=== PATIENT | female | born 1940 | race Caucasian/White ===

== ENCOUNTER 2017-04-03 15:03 | Outpatient (CLI) | payer MEDICARE ==
--- NOTE | 2017-04-03 18:04 | RAD ---
RIGHT KNEE 4 VIEWS: Date: 04/03/17 HISTORY: Acute pain in the right knee. FINDINGS/IMPRESSION: Degenerative changes are present. A joint effusion is noted. No acute fracture, dislocation, or bony destruction is identified. POS: [facility]
--- NOTE | 2017-04-03 18:15 | ULT ---
ULTRASOUND WITH DOPPLER DUPLEX VENOUS LOWER EXTREMITY RIGHT: HISTORY: 76-year-old female with acute right patellar pain, M25.561. TECHNIQUE: Color flow Doppler, spectral waveform analysis of pulsed Doppler, and zafar-scale imaging with compre ssion and augmentation, were used to evaluate the right common femoral, femoral, popliteal, posterio r tibial, and superficial femoral, veins; and the proximal portions of the profunda femoral and grea ter saphenous, veins. There is hypoechoic band with sharp, linear margins, adjacent to the patella on the last three image s, labeled as right patella. It is difficult to determine exactly where this is in relation to the patella, on static images, without personally scanning the patient. Etiology is uncertain. Pe rhaps this is a fluid collection such as a joint effusion or hematoma. FINDINGS: There is normal compressibility, demonstration of blood flow by color Doppler and pulsed Doppler, an d response to augmentation, in all interrogated veins. IMPRESSION: 1. No deep vein thrombosis in the right lower extremity. 2. Right peripatellar hypoechoic band of material, of unknown etiology, perhaps a fluid collection. MRI of the knee may be useful (if there are no contraindications). lyn gore POS: [facility]
== END 2017-04-03 15:04 | disposition home or self-care (01) ==
LOC: SCSULT 15:03
PROVIDERS: ATTEND Nurse Practitioner Family
DX: M25.561 Pain in right knee (principal); M17.11 Unilateral primary osteoarthritis, right knee; M25.461 Effusion, right knee

== ENCOUNTER 2017-05-07 12:36 | Outpatient (CLI) | payer MEDICARE ==
--- NOTE | 2017-05-07 19:23 | MRI ---
MRI BILATERAL TEMPOROMANDIBULAR JOINT 05/07/17 HISTORY: M26.609. TMJ syndrome. Mouth piece. COMPARISON: None available. FINDINGS: There is sclerosis of the mandibular condyles bilaterally. On the closed position there is normal loc ation of the mandibular condyles within the glenoid fossa. On both the closed and open mouth position s, the articular disc is mildly thickened centrally with anterior displacement and with the open mout h position is displaced and buckled anteriorly. There is bilateral temporomandibular joint effusions. IMPRESSION: Moderate degenerative changes of both temporomandibular joints and mild flattening of the mandibular condyles with joint effusions. There is anterior displacement of the centrally thickened articular di sc in the closed mouth position with further anterior translation with open mouth position. POS: [facility]
== END 2017-05-07 12:37 | disposition home or self-care (01) ==
LOC: SCSMRI 12:36
PROVIDERS: ATTEND Family Medicine
DX: M26.609 Unspecified temporomandibular joint disorder, unspecified side (principal); M26.69 Other specified disorders of temporomandibular joint
CPT/HCPCS: 70336

== ENCOUNTER 2017-06-19 16:30 | Outpatient (CLI) | payer MEDICARE | END 2017-06-19 16:31 | disposition home or self-care (01) | LOC: SLEEPLAB 16:30 | PROVIDERS: ATTEND Family Medicine | DX: G47.33 Obstructive sleep apnea (adult) (pediatric) (principal); R53.83 Other fatigue; E66.9 Obesity, unspecified; I10 Essential (primary) hypertension; E11.9 Type 2 diabetes mellitus without complications | CPT/HCPCS: 95806 ==

== ENCOUNTER 2017-09-12 13:10 | Outpatient (CLI) | payer MEDICARE ==
--- NOTE | 2017-09-12 14:03 | ULT ---
RIGHT GROIN DUPLEX SONOGRAM: HISTORY: Right groin pain. Recent heart catheterization. FINDINGS: Sonographic evaluation of the right groin shows good color and spectral Doppler flow within the right common femoral artery and vein. There is no perivascular fluid collection. No evidence of arteriov enous fistula. IMPRESSION: No evidence of vascular complication of the right groin. POS: [facility]
== END 2017-09-12 13:11 | disposition home or self-care (01) ==
LOC: ULT 13:10
PROVIDERS: ATTEND Internal Medicine Cardiovascular Disease
DX: R10.30 Lower abdominal pain, unspecified (principal)
CPT/HCPCS: 93926

== ENCOUNTER 2017-10-15 01:39 | Emergency (ER) | payer MEDICARE ==
[2017-10-15 02:06] LABS: #Basophils 0.1 thou/uL (0.0-0.2); #Eosinphils 0.3 thou/uL (0.0-0.7); #Lymphocytes 2.5 thou/uL (1.20-3.40); #Monocytes 0.9 thou/uL (0.11-0.59); #Neutrophils 9.7 thou/uL (1.40-6.50); %Basophils 0.4 % (0.0-1.0); %Eosinophils 2.3 % (0.0-10.0); %Lymphocytes 18.4 % (21.0-51.0); %Monocytes 6.5 % (0.0-10.0); %Neutrophils 72.4 % (42.0-75.0); Hemoglobin 12.2 g/dL (12.0-16.0); Mean Corpuscular HGB CONC 35.8 g/dL (32.0-36.0); Mean Corpuscular Hemoglobin 31.7 pg (27.0-31.0); Mean Corpuscular Volume 88.6 fl (81.0-99.0); Platelet Count 235 thou/uL (130-400); RBC Distribution Width 11.6 % (11.5-14.5); Red Blood Cell (RBC) Count 3.86 mill/uL (4.20-5.40); White Blood Cell (WBC) Count 13.4 thou/uL (4.8-10.8)
[2017-10-15 02:27] LABS: ALT (SGPT) 10 U/L (8-55); AST (SGOT) 15 U/L (5-34); Albumin 4.1 g/dL (3.4-4.8); Alkaline Phosphatase 60 U/L (40-150); Anion Gap 14 mmol/L (10-20); BUN (Urea Nitrogen) 13 mg/dL (9.8-20.1); Bilirubin, Total 0.5 mg/dL (0.2-1.2); Calc. Creatinine Clearance 0 mL/min (70-130); Calcium 9.2 mg/dL (7.8-10.44); Carbon Dioxide 33 mmol/L (23-31); Chloride 90 mmol/L (98-107); Estimated GFR-MDRD 66; Globulin 2.9 g/dL (2.4-3.5); Glucose 144 mg/dL (83-110); Potassium 3.3 mmol/L (3.5-5.1); Sodium 134 mmol/L (136-145)
[2017-10-15 02:30] LABS: CKMB 0.6 ng/mL (0-6.6); Troponin I Less than 0.010 ng/mL (< 0.028)
--- NOTE | 2017-10-15 07:34 | RAD ---
SINGLE VIEW CHEST: Date: 10/15/17 COMPARISON: None. HISTORY: Chest pain. FINDINGS: Single view of the chest shows a normal sized cardiomediastinal silhouette. There is no evidence of c onsolidation, mass, or pleural effusion. The bones are unremarkable. IMPRESSION: No evidence of acute cardiopulmonary disease. POS: [facility]
== END 2017-10-15 03:15 | disposition home or self-care (01) ==
LOC: ERS 01:39
DX: J40 Bronchitis, not specified as acute or chronic (principal); E03.9 Hypothyroidism, unspecified; E11.9 Type 2 diabetes mellitus without complications; I10 Essential (primary) hypertension; Z79.899 Other long term (current) drug therapy; Z79.84 Long term (current) use of oral hypoglycemic drugs
CPT/HCPCS: 36415; 71045; 80053; 82553; 84484; 85025; 85379; 93005

== ENCOUNTER 2017-10-16 13:23 | Outpatient (CLI) | payer MEDICARE ==
[2017-10-16 13:46] LABS: Hemoglobin 12.5 g/dL (12.0-16.0); Mean Corpuscular HGB CONC 35.4 g/dL (32.0-36.0); Mean Corpuscular Hemoglobin 31.1 pg (27.0-31.0); Mean Corpuscular Volume 87.8 fl (81.0-99.0); Mean Platelet Volume 8.1 fL (7.4-10.4); Platelet Count 251 thou/uL (130-400); RBC Distribution Width 11.4 % (11.5-14.5); Red Blood Cell (RBC) Count 4.01 mill/uL (4.20-5.40); White Blood Cell (WBC) Count 10.6 thou/uL (4.8-10.8)
[2017-10-16 13:49] LABS: INR-International Normal Ratio 1.1; Prothrombin Time 14.2 SEC (12.0-14.7)
[2017-10-16 13:50] LABS: PTT 39.4 SEC (22.9-36.1)
[2017-10-16 14:04] LABS: Anion Gap 11 mmol/L (10-20); BUN (Urea Nitrogen) 14 mg/dL (9.8-20.1); Calc. Creatinine Clearance 0 mL/min (70-130); Calcium 9.3 mg/dL (7.8-10.44); Carbon Dioxide 31 mmol/L (23-31); Chloride 88 mmol/L (98-107); Estimated GFR-MDRD 84; Glucose 92 mg/dL (83-110); Potassium 3.2 mmol/L (3.5-5.1); Sodium 127 mmol/L (136-145)
== END 2017-10-16 13:24 | disposition home or self-care (01) ==
LOC: LABBT 13:23
PROVIDERS: ATTEND Internal Medicine Cardiovascular Disease
DX: Z01.818 Encounter for other preprocedural examination (principal); I25.10 Atherosclerotic heart disease of native coronary artery without angina pectoris
CPT/HCPCS: 80048; 85027; 85610; 85730

== ENCOUNTER 2017-10-21 05:52 | Inpatient (IN) | payer MEDICARE ==
[2017-10-21] MEDS ORDERED: Diazepam 5 MG TAB ONE (06:02)
[2017-10-21] MEDS ORDERED: Lidocaine 1% (PF) 30 ML VIAL ONE (06:47)
[2017-10-21] MEDS ORDERED: Midazolam HCl 2 mg/2 ml Vial ONE (06:48)
[2017-10-21] MEDS ORDERED: Fentanyl 100 MCG/2 ML VIAL ONE (06:48)
[2017-10-21] MEDS ORDERED: Nitroglycerin 100MG/250ML BOT 250 ML ONE (07:52)
[2017-10-21] MEDS ORDERED: Heparin 10,000 UNITS/1 ML VIAL ONE (08:15)
[2017-10-21] MEDS ORDERED: Atropine Sulfate 1 mg/1 ml Vial ONE (08:18)
[2017-10-21] MEDS ORDERED: DOPamine 400 MG/D5W 250 ML 250 ML ONE (08:19)
[2017-10-21] MEDS ORDERED: EPINEPHrine 1 MG/10 ML Abboject SYRINGE ONE (08:20)
[2017-10-21] MEDS ORDERED: PHENYLEPHRINE-NS 100 MCG/ML 10 ML SYRINGE ONE (08:20)
[2017-10-21] MEDS ORDERED: Phenylephrine HCL 10 MG/ML VIAL ONE (08:48)
[2017-10-21] MEDS: Sodium Chloride 0.9% 1,000 ML IV SCH ×2 (12:06→14:45)
[2017-10-21] MEDS ORDERED: Iopamidol 370 76% 50 ML VIAL FS ONE (13:23)
[2017-10-21] MEDS ORDERED: Iopamidol 370 76% 100 ML VIAL ONE (13:23)
--- NOTE | 2017-10-21 14:48 | CON ---
DATE OF CONSULTATION: 10/21/2017 HISTORY OF PRESENT ILLNESS: This is a 77-year-old female with cardiovascular risk factors of hyperte nsion, dyslipidemia, diabetes mellitus who had a transient episode of atrial fibrillation by her acco unt earlier this year. Dr. Killian suggested a stress test which was abnormal with hypotension during the stress study. Cardiac catheterization done 6 weeks ago showed proximal LAD disease as well as t he mid to distal PDA lesion and a proximal posterolateral lesion. She was initially evaluated in [place] for possible atherectomy and LAD. However, after catheterizat ion today it was decided that surgical intervention may be most appropriate. PAST SURGICAL HISTORY: Includes a left knee replacement, several pelvic procedures related to a gyne cologic problems, previous cholecystectomy, and previous thyroidectomy for papillary carcinoma about 4 years ago. She has also had a skin cancer removed from her arm. PAST MEDICAL HISTORY: Besides the above noted hypertension, dyslipidemia, diabetes mellitus includes temporomandibular joint syndrome. 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 She lives by herself, doing some cattle ranching and has some difficulty getting in and out of h er truck due to arthritis. SOCIAL HISTORY: She is a nonsmoker. She lives alone in . She is accompanied by daughter today who lives in the [place] area and she has a son who lives about 30 minutes away. MEDICATIONS: Include amlodipine 5 mg a day, aspirin 81 a day, Plavix 75 a day which has been on hold for about 3-4 days, Coreg 12.5 p.o. b.i.d., glipizide 10 mg of the long-acting daily, levothyroxine 112 mcg daily, metformin 500 mg every morning and 1000 every evening, Crestor 10 mg every evening, va lsartan 320 mg a day. ALLERGIES: PENICILLIN, TETANUS, CEPHALEXIN, CORTISONE, EGGS, PREDNISONE. PHYSICAL EXAMINATION: GENERAL: Alert, cooperative lady, somewhat pale. VITAL SIGNS: Height 5 feet 7 inches, weight 82 kg. NECK: No carotid bruits, no adenopathy. LUNGS: Clear to auscultation anteriorly. CARDIAC: Regular rate and rhythm. I do not appreciate any murmurs. ABDOMEN: Obese, firm, nontender, no organomegaly. EXTREMITIES: Incision well healed on the left knee. She has palpable right popliteal, right dorsali s pedis pulse and no pedal pulses in the left foot. She has no peripheral edema. Additional review of systems at this time includes some swelling in her legs, which she has been raf luke with various diuretics including Maxzide and Lasix. Related to that, she has had some hyponatrem ia. She also relates a diagnosis of chronic kidney disease that is well controlled at this time. Sh e denies any claudication. She has had no previous TIA or stroke. She does have jaw pain sometimes making it difficult to eat and she does have a history of nausea and vomiting after anesthetics. As discussed with Dr. Killian. Possible targets include the LAD distally possibly in its mid portion, th e posterior lateral and possibly the distal PDA. Discussed with patient and daughter and questions a nswered.
[2017-10-21] MEDS ORDERED: CHLORTRIMETON PO PRN (18:35)
[2017-10-21] MEDS: Rosuvastatin 10 MG TAB PO SCH (20:08)
[2017-10-21] MEDS: Acetaminophen ER (8hr) 650 MG TAB PO PRN (20:09)
--- NOTE | 2017-10-21 23:10 | HP ---
REASON FOR ADMISSION: Severe hypotension in the chemistry lab instructor. HISTORY OF PRESENT ILLNESS: Ms. Yoly Leal is a very pleasant 77-year-old woman. The patient has been having increasing amounts of angina. She underwent outpatient cardiac catheterization. She wa s found to have a calcified LAD lesion and also disease in the right coronary artery with a 90% lesio n at the posterolateral branch. She was sent to [facility] for consideration of rotational atherectomy. The physician there was concern ed about doing the rotational atherectomy with stenosis in the right coronary artery and after consul tation with him, we elected to stage the procedure and do the right coronary artery first. The patie nt was taken to chemistry lab instructor this morning, re-evaluated the LAD. It looked like there was a very long he avily calcified lesion in the proximal LAD and borderline in the mid LAD. No obstructive disease in the circumflex and posterolateral branch stenosis as well as the posterior descending artery stenosis distally. I consulted in the chemistry lab instructor briefly with Dr. Perez. We thus decided that the best option would be to electively send her for bypass surgery. One further angiogram was done of the right coronary artery to further localize where the stenosis wa s in the posterior descending artery. At that point, the patient developed severe ST elevation, jones re bradycardia, and hypotension. The initial angiogram looked like the posterior descending artery h ad occluded. Arrangements were made to do an emergency intervention. A 6-Kiswahili sheath was exchange d for a 4-Kiswahili. She was given heparin, but then a repeat angiogram revealed that the flow had impr phillip, but then it became clear that there had been some air embolization. There must have been some air that was in the line, which was injected. Therefore, the patient was given pressors and support and it gradually improved. The EKG changes resolved. The blood pressure improved with medication, b ut it was felt best to keep her in the Intensive Care Unit for observation. The patient is feeling better now, just tired. The left ventriculogram prior to that episode had been normal. MEDICATIONS AT HOME: 1. Aspirin. 2. She is on carvedilol. 3. She was on amlodipine. 4. Plavix had been stopped a few days ago. 5. Glipizide. 6. She is also on rosuvastatin. ALLERGIES: Negative to iodine or other cardiac medicines. REVIEW OF SYSTEMS: Constitutional: No significant weight gain or loss. VISION: No changes. Heari ng: No changes. Pulmonary: No cough or wheezing. Gastrointestinal: No nausea, vomiting, diarrhea . PHYSICAL EXAMINATION: GENERAL: Now, the patient is feeling better, just tired. She has some shoulder pain, but no angina. VITAL SIGNS: Blood pressure is 100/60, pulse 86 and regular. HEENT: Eyes, sclerae are nonicteric. Mouth, mucous membranes are moist. NECK: Supple. No lymphadenopathy. LUNGS: Clear. No wheezing, rales, or rhonchi. CARDIAC: Normal S1, normal S2. ASSESSMENT: 1. Severe coronary artery disease as outlined above. 2. Hypotensive episode in the chemistry lab instructor as outlined above, resolved. PLAN: The patient will ultimately undergo bypass surgery in view of the heavily calcified LAD lesion . Continue supportive care. Discussed with the patient and family. Discussed with the family yusuf prakash this morning as well.
[2017-10-22] MEDS: Acetaminophen ER (8hr) 650 MG TAB PO PRN ×3 (04:22→22:29)
[2017-10-22] MEDS: Sodium Chloride 0.9% 1,000 ML IV SCH (04:23)
[2017-10-22] MEDS ORDERED: Amlodipine 5 MG TAB PO SCH (09:00)
[2017-10-22] MEDS: Carvedilol 6.25 MG TAB PO SCH ×2 (09:06→16:35)
[2017-10-22] MEDS: Ascorbic Acid 500 mg Chewable Tablet PO SCH (09:07)
[2017-10-22] MEDS: Valsartan 80 MG TAB PO SCH ×2 (09:27→21:07)
[2017-10-22] MEDS ORDERED: Communication Order-Pharmacy FS SCH (16:03)
[2017-10-22] MEDS: Enoxaparin Sodium 40 MG/0.4 ML SYRINGE SC SCH (21:06)
[2017-10-22] MEDS: Rosuvastatin 10 MG TAB PO SCH (21:07)
[2017-10-22] MEDS: diphenhydrAMINE 25 MG CAP PO PRN (22:32)
[2017-10-23] MEDS: Levothyroxine Sodium 100 MCG TAB PO SCH (05:24)
[2017-10-23] MEDS ORDERED: Sodium Chloride 0.9% 10 ML ONE (09:02)
[2017-10-23] MEDS: Ascorbic Acid 500 mg Chewable Tablet PO SCH (09:11)
[2017-10-23] MEDS: Carvedilol 6.25 MG TAB PO SCH ×2 (09:11→16:00)
[2017-10-23] MEDS: Enoxaparin Sodium 40 MG/0.4 ML SYRINGE SC SCH (09:11)
[2017-10-23] MEDS: Valsartan 80 MG TAB PO SCH ×2 (09:12→20:20)
[2017-10-23] MEDS: Acetaminophen ER (8hr) 650 MG TAB PO PRN ×2 (10:45→22:57)
--- NOTE | 2017-10-23 11:48 | PRG ---
DATE OF SERVICE: 10/23/2017 SUBJECTIVE: Ms. Leal feels well today. She is staying in bed, however, quite a bit. We are trying t o get her up and around again. She is not having any reports of chest pain or pressure. OBJECTIVE: VITAL SIGNS: Blood pressure 131/76 and pulse 86 and regular. LUNGS: Clear. CARDIAC: Normal S1 and S2. ASSESSMENT: Multivessel coronary artery disease with calcified proximal left anterior descending. PLAN: She is scheduled for surgery tomorrow with Dr. Perez.
[2017-10-23] MEDS ORDERED: Dextrose 50% Abboject 50 ML SYRINGE IVP PRN (12:13)
[2017-10-23] MEDS ORDERED: Insulin Regular 300 UNITS/3 ML VIAL SC PRN (12:13)
[2017-10-23] MEDS ORDERED: Dextrose 5% in Water 1,000 ML IV PRN (12:13)
[2017-10-23] MEDS: Insulin Regular 300 UNITS/3 ML VIAL SC PRN ×2 (12:20→18:50)
[2017-10-23] MEDS: Rosuvastatin 10 MG TAB PO SCH (20:20)
[2017-10-23] MEDS: diphenhydrAMINE 25 MG CAP PO PRN (22:57)
[2017-10-24] MEDS: Levothyroxine Sodium 100 MCG TAB PO SCH (03:01)
[2017-10-24] MEDS ORDERED: Clindamycin/D5W 900 MG in Premix Bag 1 BAG IVPB SCH (05:00)
[2017-10-24] MEDS: Carvedilol 6.25 MG TAB PO SCH (05:22)
[2017-10-24] MEDS ORDERED: CEFAZOLIN/Water 2 GM/20 ML SYRINGE ONE (06:09)
[2017-10-24] MEDS ORDERED: Fentanyl 100 MCG/2 ML VIAL ONE (06:25)
[2017-10-24] MEDS ORDERED: Vecuronium 10 MG VIAL ONE ×2 (06:26→14:36)
[2017-10-24] MEDS ORDERED: Norepinephrine 8 MG/0.9% NS 250 ML ONE (06:26)
[2017-10-24] MEDS ORDERED: Phenylephrine HCL 10 MG/ML VIAL ONE (06:26)
[2017-10-24] MEDS ORDERED: Midazolam HCl 5 mg/5 ml Vial ONE (06:26)
[2017-10-24] MEDS ORDERED: Nitroglycerin 50 MG/250 ML BOT 0 ML ONE (06:26)
[2017-10-24] MEDS ORDERED: Levofloxacin 500 mg/D5W 100 ml Premix Bag ONE (06:27)
[2017-10-24] MEDS ORDERED: Clindamycin/D5W 900 mg/50 ml Premix Bag ONE (06:27)
[2017-10-24] MEDS ORDERED: Heparin 10,000 UNITS/1 ML VIAL 30,000 UNITS in Sodium Chloride 0.9% 1,000 ML FS SCH (06:30)
[2017-10-24] MEDS ORDERED: Albumin 5% 500 ML ONE (06:43)
[2017-10-24] MEDS ORDERED: Insulin Regular 300 UNITS/3 ML VIAL ONE (07:50)
[2017-10-24] MEDS ORDERED: Norepinephrine 8 MG/0.9% NS 250 ML IVPB PRN (11:40)
[2017-10-24] MEDS ORDERED: Post-Op Insulin Drip Protocol IVPB ONE (11:40)
[2017-10-24] MEDS ORDERED: Hetastarch 6% 500 ML 500 ML IVPB PRN (11:40)
[2017-10-24] MEDS ORDERED: DOPamine 400 MG/D5W 250 ML 250 ML IVPB PRN (11:40)
[2017-10-24] MEDS ORDERED: Morphine 4 MG/ML VIAL SLOW IVP PRN (11:40)
[2017-10-24] MEDS ORDERED: Ondansetron HCl/PF 4 MG/2 ML Vial IVP PRN (11:40)
[2017-10-24] MEDS ORDERED: Promethazine HCl 25 MG/ML VIAL IM PRN (11:40)
[2017-10-24] MEDS ORDERED: Bisacodyl 5 MG TAB PO PRN (11:40)
[2017-10-24] MEDS ORDERED: Nitroglycerin 50 MG/250 ML BOT 250 ML IVPB PRN (11:40)
[2017-10-24] MEDS ORDERED: Bisacodyl 10 MG SUPP PR PRN (11:40)
[2017-10-24] MEDS ORDERED: HYDROcodone/Acetaminophen 5/325 mg Tablet PO PRN ×2 (11:40)
[2017-10-24] MEDS ORDERED: Fentanyl 100 MCG/2 ML VIAL SLOW IVP PRN (11:40)
[2017-10-24] MEDS ORDERED: hydrALAZINE 20 MG/ML VIAL SLOW IVP PRN (11:40)
[2017-10-24] MEDS ORDERED: Guaifenesin DM 100-10/5 ML UDCUP PO PRN (11:40)
[2017-10-24] MEDS ORDERED: Mag-Al 1200 mg/1200 mg/30 ML UDCUP PO PRN (11:40)
[2017-10-24 11:54] LABS: Actual Bicarbonate (HCO3a) 24.2 mEq/L (22-26); CO2 Tension 36.8 mmHg (35.0-45.0); O2 Tension (PaO2) 336.1 mmHg (80.0-100.0); pH, Arterial 7.44 (7.35-7.45)
[2017-10-24 11:55] LABS: Base Excess (BEa) 0.2 mEq/L (0 (+/-) 2.5); Calcium, Ionized 0.9 mmol/L (1.12-1.30); Hematocrit-ABG 30.3 % (36.0-47.0); Hemoglobin (Hb) 10.3 g/dL (12.0-16.0); Puncture Site LINE
[2017-10-24 12:00] LABS: #Eosinphils 0.3 thou/uL (0.0-0.7); #Lymphocytes 1.9 thou/uL (1.20-3.40); #Monocytes 0.9 thou/uL (0.11-0.59); #Neutrophils 13.5 thou/uL (1.40-6.50); %Basophils 0.2 % (0.0-1.0); %Eosinophils 1.6 % (0.0-10.0); %Lymphocytes 11.4 % (21.0-51.0); %Monocytes 5.3 % (0.0-10.0); %Neutrophils 81.6 % (42.0-75.0); Hemoglobin 10.7 g/dL (12.0-16.0); Mean Corpuscular HGB CONC 34.7 g/dL (32.0-36.0); Mean Corpuscular Hemoglobin 30.8 pg (27.0-31.0); Mean Corpuscular Volume 88.9 fl (81.0-99.0); Mean Platelet Volume 7.6 fL (7.4-10.4); Platelet Count 225 thou/uL (130-400); RBC Distribution Width 11.8 % (11.5-14.5); Red Blood Cell (RBC) Count 3.48 mill/uL (4.20-5.40); White Blood Cell (WBC) Count 16.5 thou/uL (4.8-10.8)
[2017-10-24 12:07] LABS: INR-International Normal Ratio 1.5; PTT 42.5 SEC (22.9-36.1); Prothrombin Time 17.9 SEC (12.0-14.7)
[2017-10-24] MEDS ORDERED: Dextrose 50% Abboject 50 ML SYRINGE SLOW IVP PRN (12:11)
[2017-10-24] MEDS ORDERED: Dextrose 5% in Water 1,000 ML IV PRN (12:11)
[2017-10-24 12:22] LABS: Anion Gap 7 mmol/L (10-20); BUN (Urea Nitrogen) 7 mg/dL (9.8-20.1); Calc. Creatinine Clearance 108 mL/min (70-130); Calcium 6.9 mg/dL (7.8-10.44); Carbon Dioxide 25 mmol/L (23-31); Chloride 106 mmol/L (98-107); Estimated GFR-MDRD Greater than 90; Glucose 99 mg/dL (83-110); Sodium 135 mmol/L (136-145)
[2017-10-24 12:32] LABS: Potassium 2.9 mmol/L (3.5-5.1)
--- NOTE | 2017-10-24 13:32 | RAD ---
PORTABLE AP CHEST XRAY: DATE: 10/24/17. HISTORY: Post open heart surgery. COMPARISON: 10/15/17. FINDINGS: There have been interval postsurgical changes related to CABG. Endotracheal tube is noted in place w ith the tip overlying the T4 vertebral body above the level of the tracee. A right subclavian centra l venous catheter is noted in place with the tip overlying the right atrium, and there is no evidence of a pneumothorax. Mediastinal drains are noted in place with a left-sided thoracostomy tube. Ther e is patchy increased density at the medial right lung base as well as a linear density overlying the left lateral costophrenic angle probably related to volume loss. Lungs are otherwise clear. No oth er interval change. The cardiac silhouette and pulmonary vasculature are within normal limits. IMPRESSION: 1. Interval postsurgical change related to coronary artery bypass graft with lines and tubes in plac e as described above. 2. Findings likely related to atelectasis at the left lung base. No pneumothorax is seen. POS: [facility]
[2017-10-24] MEDS ORDERED: Protamine Sulfate 250 MG/25 ML VIAL ONE (14:36)
[2017-10-24] MEDS ORDERED: Sodium Bicarb 50 MEQ/50 ML Abboject 8.4% SYRINGE ONE ×2 (14:36→14:38)
[2017-10-24] MEDS ORDERED: Papaverine 60 MG/2 ML VIAL ONE (14:36)
[2017-10-24] MEDS ORDERED: Heparin 5,000 UNITS/ML VIAL ONE (14:36)
[2017-10-24] MEDS ORDERED: PHENYLEPHRINE-NS 100 MCG/ML 10 ML SYRINGE ONE (14:36)
[2017-10-24] MEDS ORDERED: Aminocaproic Acid 5 GM/20 ML VIAL ONE ×2 (14:36→14:38)
[2017-10-24] MEDS ORDERED: Norepinephrine 4 MG/4 ML VIAL ONE (14:36)
[2017-10-24] MEDS ORDERED: PROPOFOL 200 MG/20 ML VIAL ONE (14:36)
[2017-10-24] MEDS ORDERED: Cardioplegic Soln 1,000 ML BAG ONE (14:36)
[2017-10-24] MEDS ORDERED: Thrombin 5000 UNITS/5 ML VIAL ONE (14:36)
[2017-10-24] MEDS ORDERED: Heparin 30,000 units/30 ml VIAL ONE ×2 (14:36→14:38)
[2017-10-24] MEDS ORDERED: Calcium Chloride 1 GM/10 ML Abboject SYRINGE ONE (14:36)
[2017-10-24] MEDS ORDERED: Lidocaine 1% PF 5 ML VIAL ONE (14:36)
[2017-10-24] MEDS ORDERED: Magnesium 5 GM/10 ML VIAL ONE (14:38)
[2017-10-24] MEDS ORDERED: Lidocaine 2% PF 100 mg/5 ml Syringe ONE (14:38)
[2017-10-24] MEDS ORDERED: Potassium Chloride 60 MEQ/30 ML VIAL ONE (14:38)
[2017-10-24] MEDS: Clindamycin/D5W 900 MG in Premix Bag 1 BAG IVPB SCH ×2 (15:22→18:12)
[2017-10-24] MEDS: Potassium Chloride 20 MEQ/100 ML PREMIX BAG IVPB PRN ×2 (15:53→19:45)
--- NOTE | 2017-10-24 15:55 | OP ---
PREOPERATIVE DIAGNOSIS: Coronary artery disease. POSTOPERATIVE DIAGNOSIS: Coronary artery disease. PROCEDURE: Coronary bypass graft x3, left internal mammary artery to the LAD, saphenous vein graft t o right PDA, right posterolateral. SURGEON: Frank Perez M.D. FOOD SUPERVISOR: Dr. Johnson. TRANSFUSION: Two units of packed red cells, 2 FFP, and 1 platelet pack. FINDINGS: The patient had evidence of recent pericarditis with cloudy pericardial fluid and adhesion s to the anterior left ventricular wall of recent onset. Additionally, the transesophageal echo show ed akinetic distal septum and decreased function of the apical anterior wall. PROCEDURE IN DETAIL: After adequate anesthesia had been obtained, the patient was prepped and draped . I had ultrasounded of the left greater saphenous vein and it was a very large caliber and the prox imal thigh and then bifurcated into 2 superficial branches, one which went over the anterior aspect o f the thigh and one more posteriorly. Initial incision was over this bifurcated area and indeed the saphenous vein was much too large to use for her small vessels at the main branch. Both of the [facility] h vessels were then harvested through multiple incisions. She was not an endovascular vein harvest c andidate. When I had completed this, Dr. Johnson scrubbed in and finished treating these veins while I performed a median sternotomy. Left internal mammary artery was harvested widely opening the left p leura. Following this, the patient was heparinized, the mammary divided distally. It should be note d while the mammary was being harvested, the patient had rather significant diffuse oozing from the s ternal edges. Following opening of the pericardium and placement of traction sutures, aorta and righ t atrium were cannulated. Cardiopulmonary bypass was instituted and the mammary artery was passed po sterior to a remnant of thymus gland. Aorta was cross-clamped and after a liter of cold blood cardio plegia, the PDA was bypassed quite distally where it was about 1.5 mm. The right posterolateral prox imally where it was 1.5-2 mm in the LAD in its mid portion, slightly distal where it was about 1.5 mm . WINN had excellent flow. Following completion of the distal anastomosis, crossclamp was removed, partial occluding clamp placed and the right posterior saphenous vein graft was anastomosed to the ao rtic root. The PDA vein graft was then anastomosed to the side of the posterolateral vein graft abou t mid right atrial level. Proximal and distal anastomoses were hemostatic and the patient was weaned from cardiopulmonary bypass. Cannulas were removed and both were reinforced with Prolene suture. P rotamine was given systemically; however, the patient continued to have oozing and a platelet pack wa s then given. There was still some vasa vasorum on the saphenous vein that continued to ooze, treate d with FloSeal without much improvement and at that point, fresh frozen plasma was ordered. A medias tinal and left pleural drain were placed following which the sternum was reapproximated with #7 inter rupted wire using vancomycin paste on the sternal edges, platelet rich blood, and platelet-poor plasm a. Subcutaneous tissue and skin were closed in layers.
[2017-10-24 17:40] LABS: Hemoglobin 10.2 g/dL (12.0-16.0)
[2017-10-24 17:53] LABS: Potassium 3.6 mmol/L (3.5-5.1)
[2017-10-24 18:56] LABS: Actual Bicarbonate (HCO3a) 20.5 mEq/L (22-26); Base Excess (BEa) -3.6 mEq/L (0 (+/-) 2.5); CO2 Tension 34.7 mmHg (35.0-45.0); O2 Tension (PaO2) 108.7 mmHg (80.0-100.0); pH, Arterial 7.39 (7.35-7.45)
[2017-10-24 18:57] LABS: ALV-art Gradient 133.125 (0-20); Puncture Site ALINE
[2017-10-24] MEDS: Sodium Chloride 0.9% 1,000 ML IV SCH (19:54)
[2017-10-24] MEDS ORDERED: Famotidine/PF 20 mg/2ml Vial SLOW IVP SCH (21:00)
[2017-10-24] MEDS: Rosuvastatin 10 MG TAB PO SCH (21:52)
[2017-10-25] MEDS: Clindamycin/D5W 900 MG in Premix Bag 1 BAG IVPB SCH ×2 (00:30→05:30)
[2017-10-25] MEDS: Fentanyl 100 MCG/2 ML VIAL SLOW IVP PRN ×2 (04:15→08:09)
[2017-10-25 04:52] LABS: #Lymphocytes 1.3 thou/uL (1.20-3.40); #Neutrophils 9.9 thou/uL (1.40-6.50); %Basophils 0.1 % (0.0-1.0); %Eosinophils 0.1 % (0.0-10.0); %Lymphocytes 10.8 % (21.0-51.0); %Monocytes 7.7 % (0.0-10.0); %Neutrophils 81.2 % (42.0-75.0); Hemoglobin 9.7 g/dL (12.0-16.0); Mean Corpuscular HGB CONC 34.3 g/dL (32.0-36.0); Mean Corpuscular Hemoglobin 30.9 pg (27.0-31.0); Mean Corpuscular Volume 90.1 fl (81.0-99.0); Mean Platelet Volume 8.2 fL (7.4-10.4); Platelet Count 236 thou/uL (130-400); RBC Distribution Width 12.2 % (11.5-14.5); Red Blood Cell (RBC) Count 3.15 mill/uL (4.20-5.40); White Blood Cell (WBC) Count 12.2 thou/uL (4.8-10.8)
[2017-10-25 05:03] LABS: Anion Gap 11 mmol/L (10-20); BUN (Urea Nitrogen) 11 mg/dL (9.8-20.1); Calc. Creatinine Clearance 93 mL/min (70-130); Calcium 7.3 mg/dL (7.8-10.44); Carbon Dioxide 22 mmol/L (23-31); Chloride 106 mmol/L (98-107); Estimated GFR-MDRD 87; Glucose 124 mg/dL (83-110); Potassium 3.3 mmol/L (3.5-5.1); Sodium 136 mmol/L (136-145)
[2017-10-25] MEDS: Levothyroxine Sodium 100 MCG TAB PO SCH (05:31)
[2017-10-25] MEDS: Sodium Chloride 0.9% 1,000 ML IV SCH (05:34)
[2017-10-25 06:17] VITALS: BMI 28.5
[2017-10-25] MEDS: Potassium Chloride 20 MEQ/100 ML PREMIX BAG IVPB PRN (06:28)
--- NOTE | 2017-10-25 09:05 | RAD ---
PORTABLE CHEST: Date: 10/25/17 HISTORY: Postop open heart surgery. COMPARISON: Prior day's study. FINDINGS: Endotracheal tube has been removed. Left chest tube and right subclavian line are unchanged in positi on. Postop sternotomy changes are seen. Heart size is enlarged. IMPRESSION: Interval removal of the endotracheal tube. Otherwise stable chest. POS: [facility]
[2017-10-25] MEDS: Ezetimibe 10 MG TAB PO SCH (09:45)
[2017-10-25] MEDS: traMADol HCl 50 MG TAB PO PRN ×2 (10:56→17:25)
[2017-10-25] MEDS: Famotidine 20 MG TAB PO SCH ×2 (10:57→21:24)
[2017-10-25] MEDS: Fluticasone Propionate Nasal Spray 16 gm Bottle NASAL SCH (11:09)
[2017-10-25] MEDS: Insulin Regular 300 UNITS/3 ML VIAL SC PRN ×2 (17:24→21:26)
[2017-10-25] MEDS: Rosuvastatin 10 MG TAB PO SCH (21:24)
--- NOTE | 2017-10-25 23:37 | PRG ---
DATE OF SERVICE: 10/25/2017 SUBJECTIVE: She was seen earlier today on the rounds. She is status post bypass surgery with 3-vess el bypass surgery being performed. She had no new complaints except she complains of leg discomfort. PHYSICAL EXAMINATION: Revealed a blood pressure 109/84, heart rate was 93 and regular. She remains in sinus rhythm. GENERAL: She is doing well status post bypass surgery. CHEST: Clear. CARDIOVASCULAR: She has regular rate and rhythm. There were no new findings otherwise today. IMPRESSION: Coronary artery disease, status post bypass surgery. She remains stable. We will margret shara to follow her on a routine basis throughout this hospital course. I have reviewed her medication s and would agree with the present medications at this time. Overall cardiac status at this point is stable.
[2017-10-26] MEDS: traMADol HCl 50 MG TAB PO PRN ×3 (04:09→22:50)
[2017-10-26 05:19] LABS: #Eosinphils 0.2 thou/uL (0.0-0.7); #Lymphocytes 1.3 thou/uL (1.20-3.40); #Monocytes 1.4 thou/uL (0.11-0.59); #Neutrophils 10.2 thou/uL (1.40-6.50); %Basophils 0.2 % (0.0-1.0); %Eosinophils 1.8 % (0.0-10.0); %Monocytes 10.5 % (0.0-10.0); %Neutrophils 77.5 % (42.0-75.0); Hemoglobin 9.6 g/dL (12.0-16.0); Mean Corpuscular HGB CONC 33.7 g/dL (32.0-36.0); Mean Corpuscular Hemoglobin 30.7 pg (27.0-31.0); Mean Corpuscular Volume 91.1 fl (81.0-99.0); Mean Platelet Volume 8.4 fL (7.4-10.4); Platelet Count 264 thou/uL (130-400); RBC Distribution Width 12.2 % (11.5-14.5); Red Blood Cell (RBC) Count 3.11 mill/uL (4.20-5.40); White Blood Cell (WBC) Count 13.2 thou/uL (4.8-10.8)
[2017-10-26 05:37] LABS: Anion Gap 8 mmol/L (10-20); BUN (Urea Nitrogen) 20 mg/dL (9.8-20.1); Calc. Creatinine Clearance 83 mL/min (70-130); Calcium 7.8 mg/dL (7.8-10.44); Carbon Dioxide 26 mmol/L (23-31); Chloride 103 mmol/L (98-107); Estimated GFR-MDRD 75; Glucose 208 mg/dL (83-110); Sodium 133 mmol/L (136-145)
[2017-10-26] MEDS: Insulin Regular 300 UNITS/3 ML VIAL SC PRN ×4 (06:29→22:01)
[2017-10-26] MEDS: Levothyroxine Sodium 100 MCG TAB PO SCH (07:32)
[2017-10-26] MEDS: Famotidine 20 MG TAB PO SCH ×2 (08:17→21:49)
[2017-10-26] MEDS: Ezetimibe 10 MG TAB PO SCH (08:17)
[2017-10-26] MEDS ORDERED: Guaifenesin DM 100-10/5 ML UDCUP PO PRN (10:25)
[2017-10-26] MEDS ORDERED: Zolpidem Tartrate 5 MG TAB PO PRN (10:25)
[2017-10-26] MEDS ORDERED: Mineral Oil ENEMA PR PRN (10:25)
[2017-10-26] MEDS ORDERED: Nitroglycerin 0.4 MG TAB (25 Tab Bottle) SL PRN (10:25)
[2017-10-26] MEDS ORDERED: Bisacodyl 10 MG SUPP PR PRN (10:25)
[2017-10-26] MEDS ORDERED: Artificial Tears 18 DROP/0.9 ML EA EYE PRN (10:25)
[2017-10-26] MEDS ORDERED: diphenhydrAMINE 25 MG CAP PO PRN (10:25)
[2017-10-26] MEDS ORDERED: Bisacodyl 5 MG TAB PO PRN (10:25)
[2017-10-26] MEDS ORDERED: Mag-Al 1200 mg/1200 mg/30 ML UDCUP PO PRN (10:25)
--- NOTE | 2017-10-26 10:37 | RAD ---
PORTABLE CHEST: Date: 10/26/17 HISTORY: Postop open heart surgery. COMPARISON: Prior day's study. FINDINGS: Left chest tube has been removed. Heart size is enlarged with postop sternotomy change. No signs of p neumothorax. IMPRESSION: Interval removal of left chest tube. Otherwise no change. POS: [facility]
[2017-10-26] MEDS ORDERED: Dextrose 5% in Water 1,000 ML IV PRN (10:38)
[2017-10-26] MEDS ORDERED: Dextrose 50% Abboject 50 ML SYRINGE SLOW IVP PRN (10:38)
[2017-10-26] MEDS: Fluticasone Propionate Nasal Spray 16 gm Bottle NASAL SCH (12:13)
[2017-10-26] MEDS: Rosuvastatin 10 MG TAB PO SCH (21:49)
[2017-10-27] MEDS: SYNTHROID 100 MCG TAB PO SCH (06:12)
[2017-10-27] MEDS: Levothyroxine Sodium 100 MCG TAB PO SCH (06:14)
[2017-10-27] MEDS: Insulin Regular 300 UNITS/3 ML VIAL SC PRN ×3 (07:20→21:26)
--- NOTE | 2017-10-27 07:41 | PRG ---
DATE OF SERVICE: 10/27/2017 HISTORY: Ms. Leal is doing better. She says she has been up and around some. No anginal chest pain. PHYSICAL EXAMINATION: VITAL SIGNS: Blood pressure is 119/56, pulse is somewhat fast at 100 beats per minute, sinus. LUNGS: Clear. CARDIAC: Normal S1, normal S2. ABDOMEN: Soft, nontender. EXTREMITIES: No edema. ASSESSMENT: 1. Status post coronary bypass grafting. 2. Relatively rapid resting heart rate. 3. History of hypertension. 4. History of diabetes. PLAN: 1. Resume low dose beta blockers this evening. 2. Continue aspirin. 3. Continue statin. 4. Consideration for resuming angiotensin receptor blockers angiotensin receptor blockers tomorrow.
[2017-10-27] MEDS: Famotidine 20 MG TAB PO SCH ×2 (09:49→20:19)
[2017-10-27] MEDS: Ezetimibe 10 MG TAB PO SCH (09:49)
[2017-10-27] MEDS: Aspirin 325 mg Enteric Coated Tablet PO SCH (09:49)
[2017-10-27] MEDS: Fluticasone Propionate Nasal Spray 16 gm Bottle NASAL SCH (09:49)
[2017-10-27] MEDS ORDERED: Furosemide 40 MG/4 ML VIAL SLOW IVP SCH (16:30)
[2017-10-27] MEDS: Carvedilol 3.125 MG TAB PO SCH (17:53)
[2017-10-27] MEDS: metFORMIN 850 MG TAB PO SCH (17:53)
--- NOTE | 2017-10-27 18:38 | EKG ---
Test Reason : POST CABG Blood Pressure : / mmHG Vent. Rate : 078 BPM Atrial Rate : 078 BPM P-R Int : 176 ms QRS Dur : 082 ms QT Int : 488 ms P-R-T Axes : 067 033 -62 degrees QTc Int : 556 ms Normal sinus rhythm with sinus arrhythmia T wave abnormality, consider inferior ischemia T wave abnormality, consider anterior ischemia Prolonged QT Abnormal ECG When compared with ECG of 15-OCT-2017 01:49, (Unconfirmed) T wave inversion now evident in Inferior leads T wave inversion now evident in Anterior leads QT has lengthened Confirmed by TAN BRADLEY (2) on 10/27/2017 6:37:39 PM Referred By: HAVEN Confirmed By:TAN BRADLEY
[2017-10-27] MEDS: Enoxaparin Sodium 30 MG/0.3 ML SYRINGE SC SCH (20:19)
[2017-10-27] MEDS: Rosuvastatin 10 MG TAB PO SCH (20:19)
[2017-10-27] MEDS: Acetaminophen 325 MG TAB PO PRN (21:29)
[2017-10-28] MEDS ORDERED: Amiodarone HCl 150 MG, Admixture Fee 1 EACH in Dextrose 5% in Water 100 ML IVPB SCH ×2 (01:15→09:30)
[2017-10-28] MEDS: Amiodarone HCl 450 MG, Admixture Fee 1 EACH in Dextrose 5% in Water 250 ML IVPB SCH ×2 (01:35→09:11)
[2017-10-28 01:38] LABS: ALT (SGPT) 18 U/L (8-55); AST (SGOT) 23 U/L (5-34); Albumin 2.8 g/dL (3.4-4.8); Alkaline Phosphatase 62 U/L (40-150); Bilirubin, Direct 0.4 mg/dL (0.1-0.3); Bilirubin, Total 0.5 mg/dL (0.2-1.2); Magnesium 1.4 mg/dL (1.6-2.6); Protein, Total 5.4 g/dL (6.0-8.3)
[2017-10-28 05:55] LABS: Anion Gap 12 mmol/L (10-20); BUN (Urea Nitrogen) 16 mg/dL (9.8-20.1); Calc. Creatinine Clearance 100 mL/min (70-130); Calcium 8.5 mg/dL (7.8-10.44); Carbon Dioxide 29 mmol/L (23-31); Chloride 94 mmol/L (98-107); Estimated GFR-MDRD 87; Glucose 183 mg/dL (83-110); Potassium 3.8 mmol/L (3.5-5.1); Sodium 131 mmol/L (136-145)
[2017-10-28] MEDS: SYNTHROID 100 MCG TAB PO SCH (05:58)
[2017-10-28] MEDS: Insulin Regular 300 UNITS/3 ML VIAL SC PRN ×4 (05:59→20:39)
[2017-10-28] MEDS: Levothyroxine Sodium 100 MCG TAB PO SCH (07:25)
[2017-10-28] MEDS: Ezetimibe 10 MG TAB PO SCH (07:57)
[2017-10-28] MEDS: Aspirin 325 mg Enteric Coated Tablet PO SCH (07:57)
[2017-10-28] MEDS: metFORMIN 850 MG TAB PO SCH ×2 (07:57→16:18)
[2017-10-28] MEDS: Furosemide 20 MG TAB PO SCH ×2 (07:57→14:34)
[2017-10-28] MEDS: Fluticasone Propionate Nasal Spray 16 gm Bottle NASAL SCH (07:58)
[2017-10-28] MEDS: Carvedilol 3.125 MG TAB PO SCH (07:58)
[2017-10-28] MEDS: Famotidine 20 MG TAB PO SCH ×2 (07:58→20:11)
[2017-10-28] MEDS: Digoxin 0.5 MG/2 ML AMP SLOW IVP SCH ×2 (10:26→10:33)
[2017-10-28] MEDS ORDERED: Metoprolol Tartrate 25 MG TAB PO SCH ×2 (10:30→10:45)
--- NOTE | 2017-10-28 10:43 | PRG ---
DATE OF SERVICE: 10/28/2017 SUBJECTIVE: Ms. Leal went into atrial fibrillation with a rapid rate last night. She was started on intravenous amiodarone. Despite that, her rate is still 120 to 140. She was not given diltiazem las t night as her blood pressure was low. PHYSICAL EXAMINATION: GENERAL: She is sitting up in a chair now. VITAL SIGNS: Heart rate is still 120 to 130. LUNGS: Clear. CARDIAC: Irregularly irregular and tachycardic. ABDOMEN: Soft, nontender. EXTREMITIES: No edema. ASSESSMENT: 1. Atrial fibrillation with a rapid rate. 2. Post-bypass surgery. PLAN: 1. She is on intravenous amiodarone. 2. We will give a single dose of digoxin. 3. Add oral beta-blockers in the form of metoprolol and stop carvedilol. Continue to follow with jessica campos. The situation discussed with the patient.
[2017-10-28] MEDS ORDERED: Potassium Chloride 20 MEQ/100 ML PREMIX BAG IVPB SCH (10:45)
[2017-10-28] MEDS ORDERED: Metoprolol Tartrate 5 MG/5 ML VIAL IVP SCH (10:45)
[2017-10-28 13:22] LABS: pH, Arterial 7.44 (7.35-7.45)
[2017-10-28 13:23] LABS: Actual Bicarbonate (HCO3a) 24.9 mEq/L (22-26); Analyzer IN Cardio OR; Base Excess (BEa) 0.8 mEq/L (0 (+/-) 2.5); CO2 Tension 37.7 mmHg (35.0-45.0); Calcium, Ionized 0.9 mmol/L (1.12-1.30); Hematocrit-ABG 28.6 % (36.0-47.0); Hemoglobin (Hb) 9.6 g/dL (12.0-16.0); O2 Tension (PaO2) 422.6 mmHg (80.0-100.0); Puncture Site ALINE
[2017-10-28 13:26] LABS: Actual Bicarbonate (HCO3a) 22.7 mEq/L (22-26); Analyzer IN Cardio OR; Base Excess (BEa) 0.1 mEq/L (0 (+/-) 2.5); CO2 Tension 29.4 mmHg (35.0-45.0); Hematocrit-ABG 29.2 % (36.0-47.0); O2 Tension (PaO2) 409.6 mmHg (80.0-100.0); pH, Arterial 7.51 (7.35-7.45)
[2017-10-28 13:27] LABS: Actual Bicarbonate (HCO3a) 23.5 mEq/L (22-26); Base Excess (BEa) -0.4 mEq/L (0 (+/-) 2.5); CO2 Tension 35.1 mmHg (35.0-45.0); Hematocrit-ABG 27.8 % (36.0-47.0); Hemoglobin (Hb) 8.9 g/dL (12.0-16.0); O2 Tension (PaO2) 441.9 mmHg (80.0-100.0); pH, Arterial 7.44 (7.35-7.45)
[2017-10-28 13:27] LABS: Puncture Site ALINE
[2017-10-28 13:28] LABS: Actual Bicarbonate (HCO3v) 26 mEq/L (22-26); Analyzer IN Cardio OR; Base Excess 1.5 mEq/L (0 (+/- 2.5)); Hematocrit-VBG 19.3 % (35-47); Hemoglobin (Hb) 6.1 g/dL (11.7-16.1); pH (venous) 7.41 (7.35-7.45)
[2017-10-28 13:28] LABS: Analyzer IN Cardio OR; Puncture Site ALINE
[2017-10-28 13:29] LABS: Actual Bicarbonate (HCO3a) 25.5 mEq/L (22-26); Base Excess (BEa) 1.5 mEq/L (0 (+/-) 2.5); Hematocrit-ABG 20.2 % (36.0-47.0); Hemoglobin (Hb) 6.6 g/dL (12.0-16.0); pH, Arterial 7.46 (7.35-7.45)
[2017-10-28 13:29] LABS: Calcium, Ionized 0.93 mmol/L (1.16-1.32); Chloride (ABG LAB) 98 mmol/L (98-106); Potassium - ABG Lab 2.8 mmol/L (3.70-5.30); Sodium 134.6 mmol/L (133-146)
[2017-10-28 13:30] LABS: CO2 Tension 36.2 mmHg (35.0-45.0); pH, Arterial 7.45 (7.35-7.45)
[2017-10-28 13:30] LABS: Analyzer IN Cardio OR; Calcium, Ionized 0.9 mmol/L (1.12-1.30); Puncture Site ALINE
[2017-10-28 13:31] LABS: Actual Bicarbonate (HCO3a) 24.3 mEq/L (22-26); Base Excess (BEa) 0.3 mEq/L (0 (+/-) 2.5); Calcium, Ionized 0.9 mmol/L (1.12-1.30); Hematocrit-ABG 24.2 % (36.0-47.0); Hemoglobin (Hb) 8.1 g/dL (12.0-16.0); O2 Tension (PaO2) 397.9 mmHg (80.0-100.0)
[2017-10-28 13:32] LABS: Analyzer IN Cardio OR; Puncture Site ALINE
[2017-10-28] MEDS: traMADol HCl 50 MG TAB PO PRN ×2 (16:18→22:11)
[2017-10-28] MEDS: Amiodarone 200 MG TAB PO SCH (18:17)
[2017-10-28] MEDS: Enoxaparin Sodium 30 MG/0.3 ML SYRINGE SC SCH (20:10)
[2017-10-28] MEDS: Metoprolol Tartrate 25 MG TAB PO SCH (20:11)
[2017-10-28] MEDS: Rosuvastatin 10 MG TAB PO SCH (20:11)
[2017-10-29] MEDS ORDERED: Diltiazem HCl 125 MG, Admixture Fee 1 EACH in Sodium Chloride 0.9% 100 ML IVPB SCH ×2 (05:30→22:30)
[2017-10-29] MEDS: Insulin Regular 300 UNITS/3 ML VIAL SC PRN ×3 (05:47→17:26)
[2017-10-29] MEDS: SYNTHROID 100 MCG TAB PO SCH (06:26)
[2017-10-29] MEDS: Levothyroxine Sodium 100 MCG TAB PO SCH (06:27)
[2017-10-29] MEDS: Amiodarone 200 MG TAB PO SCH ×2 (09:03→21:48)
[2017-10-29] MEDS: metFORMIN 500 MG TAB PO SCH ×2 (09:03→17:27)
[2017-10-29] MEDS: Aspirin 325 mg Enteric Coated Tablet PO SCH (09:03)
[2017-10-29] MEDS: Potassium Chloride 10 MEQ TAB PO SCH ×2 (09:03→17:35)
[2017-10-29] MEDS: Fluticasone Propionate Nasal Spray 16 gm Bottle NASAL SCH ×2 (09:04→09:10)
[2017-10-29] MEDS: Ezetimibe 10 MG TAB PO SCH (09:04)
[2017-10-29] MEDS: Famotidine 20 MG TAB PO SCH ×2 (09:04→21:49)
[2017-10-29] MEDS: Furosemide 20 MG TAB PO SCH ×2 (09:04→13:17)
[2017-10-29] MEDS: Metoprolol Tartrate 25 MG TAB PO SCH ×2 (09:05→21:48)
[2017-10-29] MEDS: Polyethylene Glycol 3350 17 GM Packet PO SCH ×2 (09:05→09:34)
[2017-10-29] MEDS: Magnesium Oxide 400 MG TAB PO SCH (09:05)
--- NOTE | 2017-10-29 12:08 | PRG ---
DATE OF SERVICE: 10/29/2017 SUBJECTIVE: Ms. Leal is doing better. She is up in a chair. She has been walking some. No chest pa in or pressure. Her heart rate currently, she is in sinus rhythm with a rate of 73. She is still sibley ving some paroxysmal atrial fibrillation. PHYSICAL EXAMINATION: LUNGS: Clear. CARDIAC: Normal S1 and normal S2. ABDOMEN: Soft and nontender. EXTREMITIES: There is moderate edema. ASSESSMENT: 1. Status post bypass surgery. 2. Paroxysmal atrial fibrillation, improving. PLAN: 1. She is on amiodarone orally. 2. P.r.n. Cardizem. 3. Continue ambulation.
[2017-10-29] MEDS: traMADol HCl 50 MG TAB PO PRN (21:48)
[2017-10-29] MEDS: Rosuvastatin 10 MG TAB PO SCH (21:48)
[2017-10-29] MEDS: Enoxaparin Sodium 30 MG/0.3 ML SYRINGE SC SCH (21:49)
[2017-10-30 04:59] LABS: #Basophils 0.1 thou/uL (0.0-0.2); #Eosinphils 0.3 thou/uL (0.0-0.7); #Lymphocytes 2.5 thou/uL (1.20-3.40); #Monocytes 1.6 thou/uL (0.11-0.59); %Basophils 0.4 % (0.0-1.0); %Eosinophils 2.1 % (0.0-10.0); %Lymphocytes 17.2 % (21.0-51.0); %Monocytes 11.1 % (0.0-10.0); %Neutrophils 69.1 % (42.0-75.0); Hemoglobin 9.5 g/dL (12.0-16.0); Mean Corpuscular HGB CONC 33.9 g/dL (32.0-36.0); Mean Corpuscular Hemoglobin 30.1 pg (27.0-31.0); Mean Corpuscular Volume 88.9 fl (81.0-99.0); Mean Platelet Volume 7.1 fL (7.4-10.4); Platelet Count 361 thou/uL (130-400); RBC Distribution Width 11.7 % (11.5-14.5); Red Blood Cell (RBC) Count 3.16 mill/uL (4.20-5.40); White Blood Cell (WBC) Count 14.4 thou/uL (4.8-10.8)
[2017-10-30 05:15] LABS: Anion Gap 11 mmol/L (10-20); BUN (Urea Nitrogen) 12 mg/dL (9.8-20.1); Calc. Creatinine Clearance 89 mL/min (70-130); Calcium 8.2 mg/dL (7.8-10.44); Carbon Dioxide 32 mmol/L (23-31); Chloride 88 mmol/L (98-107); Estimated GFR-MDRD 81; Glucose 116 mg/dL (83-110); Potassium 3.8 mmol/L (3.5-5.1); Sodium 127 mmol/L (136-145)
[2017-10-30] MEDS: SYNTHROID 100 MCG TAB PO SCH (06:24)
[2017-10-30] MEDS: Levothyroxine Sodium 100 MCG TAB PO SCH (06:24)
[2017-10-30] MEDS: Aspirin 325 mg Enteric Coated Tablet PO SCH (09:58)
[2017-10-30] MEDS: metFORMIN 500 MG TAB PO SCH ×2 (09:58→17:19)
[2017-10-30] MEDS: Ezetimibe 10 MG TAB PO SCH (09:58)
[2017-10-30] MEDS: Potassium Chloride 10 MEQ TAB PO SCH ×2 (09:59→17:19)
[2017-10-30] MEDS: Amiodarone 200 MG TAB PO SCH ×2 (09:59→19:50)
[2017-10-30] MEDS: Metoprolol Tartrate 50 MG TAB PO SCH ×2 (09:59→19:50)
[2017-10-30] MEDS: Magnesium Oxide 400 MG TAB PO SCH (09:59)
[2017-10-30] MEDS ORDERED: Magnesium 2 GM/NS 0.9% 100 ML 3 GM in Premix Bag 1 BAG IVPB SCH (10:00)
[2017-10-30] MEDS: Famotidine 20 MG TAB PO SCH ×2 (10:00→19:50)
[2017-10-30] MEDS: Fluticasone Propionate Nasal Spray 16 gm Bottle NASAL SCH (10:01)
[2017-10-30] MEDS: Polyethylene Glycol 3350 17 GM Packet PO SCH (10:05)
--- NOTE | 2017-10-30 10:08 | PRG ---
DATE OF SERVICE: 10/30/2017 SUBJECTIVE: Ms. Leal is doing okay. She had some recurrent atrial fibrillation with a rapid rate aga in last night. She is back in sinus today. OBJECTIVE: VITAL SIGNS: Blood pressure 116/57, pulse 66 regular, it is sinus on the monitor. LUNGS: Clear. CARDIAC: Normal S1, normal S2. ABDOMEN: Soft, nontender. EXTREMITIES: There is no edema. ASSESSMENT: 1. Post-bypass surgery. 2. Recurrent paroxysmal atrial fibrillation. PLAN: 1. Continue amiodarone. 2. P.r.n. diltiazem. 3. Continue rehabilitation.
[2017-10-30] MEDS ORDERED: Magnesium Sulfate 3 GM in Sodium Chloride 0.9% 100 ML IVPB SCH (11:00)
[2017-10-30] MEDS: Acetaminophen 325 MG TAB PO PRN (11:30)
[2017-10-30] MEDS: Insulin Regular 300 UNITS/3 ML VIAL SC PRN ×2 (11:30→17:20)
[2017-10-30] MEDS ORDERED: Potassium Chloride 20 MEQ TAB PO SCH (12:00)
[2017-10-30] MEDS: Rosuvastatin 10 MG TAB PO SCH (19:50)
[2017-10-30] MEDS: Enoxaparin Sodium 30 MG/0.3 ML SYRINGE SC SCH (19:51)
[2017-10-30] MEDS: traMADol HCl 50 MG TAB PO PRN (22:23)
[2017-10-31] MEDS: SYNTHROID 100 MCG TAB PO SCH (06:07)
[2017-10-31] MEDS: Levothyroxine Sodium 100 MCG TAB PO SCH (06:07)
[2017-10-31] MEDS: Magnesium Oxide 400 MG TAB PO SCH (08:37)
[2017-10-31] MEDS: Famotidine 20 MG TAB PO SCH ×2 (08:37→19:59)
[2017-10-31] MEDS: Aspirin 325 mg Enteric Coated Tablet PO SCH (08:37)
[2017-10-31] MEDS: Ezetimibe 10 MG TAB PO SCH (08:37)
[2017-10-31] MEDS: Metoprolol Tartrate 50 MG TAB PO SCH ×2 (08:37→19:59)
[2017-10-31] MEDS: metFORMIN 500 MG TAB PO SCH ×2 (08:37→17:44)
[2017-10-31] MEDS: Amiodarone 200 MG TAB PO SCH ×2 (08:37→19:59)
[2017-10-31] MEDS: Polyethylene Glycol 3350 17 GM Packet PO SCH (08:38)
[2017-10-31] MEDS: Fluticasone Propionate Nasal Spray 16 gm Bottle NASAL SCH (08:43)
[2017-10-31] MEDS ORDERED: Magnesium Sulfate 3 GM in Sodium Chloride 0.9% 100 ML IVPB SCH (09:00)
[2017-10-31] MEDS ORDERED: Potassium Chloride 40 MEQ in Sodium Chloride 0.9% 250 ML 250 ML IVPB SCH (09:00)
--- NOTE | 2017-10-31 09:13 | PRG ---
DATE OF SERVICE: 10/31/2017 SUBJECTIVE: Ms. Leal is doing well. She did not have any atrial fibrillation last night. She is sit ting up in the chair, feeling better. OBJECTIVE: VITAL SIGNS: Blood pressure is high, most recently, 150/69 and pulse 66; earlier, the blood pressure was 114/56. LUNGS: Clear. CARDIAC: Normal S1 and normal S2. ABDOMEN: Soft, nontender. EXTREMITIES: No edema. ASSESSMENT: 1. Status post bypass surgery. 2. Paroxysmal atrial fibrillation. 3. Hypokalemia. 4. Hypomagnesemia. PLAN: 1. Replete potassium and magnesium. 2. Continue amiodarone. 3. Continue carvedilol. 4. Continue rosuvastatin. 5. Continue valsartan. 6. The patient should be able to be [facility] tomorrow. 7. I would reduce the amiodarone to 200 mg twice a day when she goes to [facility].
[2017-10-31] MEDS: Insulin Regular 300 UNITS/3 ML VIAL SC PRN (12:13)
[2017-10-31] MEDS: Rosuvastatin 10 MG TAB PO SCH (19:59)
[2017-10-31] MEDS: Enoxaparin Sodium 30 MG/0.3 ML SYRINGE SC SCH (19:59)
[2017-10-31] MEDS: traMADol HCl 50 MG TAB PO PRN (23:41)
[2017-11-01 05:33] LABS: Anion Gap 12 mmol/L (10-20); BUN (Urea Nitrogen) 13 mg/dL (9.8-20.1); Calc. Creatinine Clearance 94 mL/min (70-130); Calcium 8.3 mg/dL (7.8-10.44); Carbon Dioxide 28 mmol/L (23-31); Chloride 92 mmol/L (98-107); Estimated GFR-MDRD 87; Glucose 133 mg/dL (83-110); Potassium 4.6 mmol/L (3.5-5.1); Sodium 127 mmol/L (136-145)
[2017-11-01] MEDS: SYNTHROID 100 MCG TAB PO SCH (06:04)
[2017-11-01] MEDS: Levothyroxine Sodium 100 MCG TAB PO SCH (06:06)
[2017-11-01] MEDS: Amiodarone 200 MG TAB PO SCH (09:40)
[2017-11-01] MEDS: Aspirin 325 mg Enteric Coated Tablet PO SCH (09:40)
[2017-11-01] MEDS: Ezetimibe 10 MG TAB PO SCH (09:40)
[2017-11-01] MEDS: Magnesium Oxide 400 MG TAB PO SCH (09:40)
[2017-11-01] MEDS: Metoprolol Tartrate 50 MG TAB PO SCH (09:40)
[2017-11-01] MEDS: metFORMIN 500 MG TAB PO SCH (09:41)
[2017-11-01] MEDS: Famotidine 20 MG TAB PO SCH (09:41)
[2017-11-01] MEDS: Polyethylene Glycol 3350 17 GM Packet PO SCH (09:41)
[2017-11-01] MEDS ORDERED: Valsartan 80 MG TAB PO SCH ×2 (09:45→11:00)
[2017-11-01] MEDS: Fluticasone Propionate Nasal Spray 16 gm Bottle NASAL SCH (09:48)
[2017-11-01 11:35] VITALS: TEMP 97.8
[2017-11-01 12:45] VITALS: BP 194/84
--- NOTE | 2017-11-01 18:23 | DIS ---
HOSPITAL COURSE: This is a 77-year-old female who was brought into the hospital for cardiac catheter ization and possible right coronary angioplasty. This was deemed not possible and she was taken to [facility] operating room the following day where she underwent 3-vessel bypass grafting to the LAD, right PD A, and right posterolateral receiving transfusions intraoperatively related to Plavix therapy. Posto peratively, besides not being very motivated, she did relatively well. She had some perioperative at rial fibrillation which was controlled with medications and did not recur in the 36 hours prior to di scharge to [facility]. DISCHARGE MEDICATIONS: Will include amiodarone 200 mg b.i.d., aspirin 1 a day, Zetia 10 a day, glipi zide 5 mg a day, levothyroxine 100 mcg a day, metformin 1000 b.i.d., metoprolol 25 b.i.d., Crestor 10 a day, tramadol as needed for pain, valsartan 80 mg a day. Discharge and follow up instructions hav e been given.
[2017-11-02] MEDS ORDERED: Valsartan 80 MG TAB PO SCH (09:00)
== END 2017-11-01 12:44 | disposition home or self-care (01) | DRG 234 ==
LOC: CCL 05:52 → CCU 09:42 → 2NO 10-22 10:01 → CCU 10-24 07:00 → IMCU/EMU 10-26 21:07 → 2NO 10-29 14:29
PROVIDERS: ADMIT Internal Medicine Cardiovascular Disease; ATTEND Internal Medicine Cardiovascular Disease
PROC: 4A023N7 Measurement of Cardiac Sampling and Pressure, Left Heart, Percutaneous Approach (ICD-10-PCS; 2017-10-21)
PROC: B2111ZZ Fluoroscopy of Multiple Coronary Arteries using Low Osmolar Contrast (ICD-10-PCS; 2017-10-21)
PROC: B2151ZZ Fluoroscopy of Left Heart using Low Osmolar Contrast (ICD-10-PCS; 2017-10-21)
PROC: 02100Z9 Bypass Coronary Artery, One Artery from Left Internal Mammary, Open Approach (ICD-10-PCS; principal; 2017-10-24)
PROC: 021109W Bypass Coronary Artery, Two Arteries from Aorta with Autologous Venous Tissue, Open Approach (ICD-10-PCS; 2017-10-24)
PROC: 5A1221Z Performance of Cardiac Output, Continuous (ICD-10-PCS; 2017-10-24)
PROC: 06BQ0ZZ Excision of Left Saphenous Vein, Open Approach (ICD-10-PCS; 2017-10-24)
DX: I25.10 Atherosclerotic heart disease of native coronary artery without angina pectoris (principal); I95.9 Hypotension, unspecified; I48.0 Paroxysmal atrial fibrillation; E87.6 Hypokalemia; E83.42 Hypomagnesemia; I10 Essential (primary) hypertension; E11.9 Type 2 diabetes mellitus without complications; E78.5 Hyperlipidemia, unspecified; Z88.0 Allergy status to penicillin; Z88.7 Allergy status to serum and vaccine; Z88.8 Allergy status to other drugs, medicaments and biological substances; Z88.1 Allergy status to other antibiotic agents; Z91.012 Allergy to eggs; Z79.84 Long term (current) use of oral hypoglycemic drugs; Z79.02 Long term (current) use of antithrombotics/antiplatelets; Z79.82 Long term (current) use of aspirin; Z79.899 Other long term (current) drug therapy; Z96.652 Presence of left artificial knee joint
CPT/HCPCS: 36415; 36416; 36430; 71045; 76942; 80048; 80076; 82805; 83735; 84443; 85025; 85347; 85610; 85730; 86850; 86900; 86901; 93005; 93010; 93458; 93798; 94002; 94150; 99152; 99153; A4216; C1769; C1887; G8978-GP-CN; G8979-GP-CJ; G8987-GO-CJ; G8988-GO-CI; J0171; J0282; J0461; J1265; J1642; J1644; J1650; J1815; J1956; J2001; J2250; J2270; J2370; J2405; J2440; J2704; J2720; J3010; J3370; J3475; J3480; J3490; J7050; J7070; P9016; P9035; P9045; P9059; S0017; S0028

== ENCOUNTER 2017-11-15 19:22 | Inpatient (IN) | payer MEDICARE ==
[~2017-11-15 19:22] MED LIST: ISOVUE-370 76%-LOCM 1 ML ONE
[2017-11-15 19:59] LABS: #Basophils 0.1 thou/uL (0.0-0.2); #Eosinphils 0.4 thou/uL (0.0-0.7); #Lymphocytes 2.3 thou/uL (1.20-3.40); #Monocytes 1.1 thou/uL (0.11-0.59); #Neutrophils 12.9 thou/uL (1.40-6.50); %Basophils 0.5 % (0.0-1.0); %Eosinophils 2.1 % (0.0-10.0); %Lymphocytes 13.5 % (21.0-51.0); %Monocytes 6.8 % (0.0-10.0); %Neutrophils 77.1 % (42.0-75.0); Hemoglobin 11.2 g/dL (12.0-16.0); Mean Corpuscular HGB CONC 33.8 g/dL (32.0-36.0); Mean Corpuscular Hemoglobin 30.1 pg (27.0-31.0); Mean Corpuscular Volume 89.2 fl (81.0-99.0); Mean Platelet Volume 6.8 fL (7.4-10.4); Platelet Count 398 thou/uL (130-400); RBC Distribution Width 12.8 % (11.5-14.5); Red Blood Cell (RBC) Count 3.73 mill/uL (4.20-5.40); White Blood Cell (WBC) Count 16.8 thou/uL (4.8-10.8)
--- NOTE | 2017-11-15 20:11 | RAD ---
CHEST ONE VIEW: 11/15/17 HISTORY: Chest pain. COMPARISON: Radiograph 10/26/17. FINDINGS: Moderate sized layering left effusion. Small layering left effusion. Small layering right effusion. C entral venous catheter has been removed. No pneumothorax. Cardiac silhouette and mediastinal contours are similar. IMPRESSION: Mild interval slight increase in the layering bilateral pleural effusions. POS: [facility]
[2017-11-15 20:21] LABS: ALT (SGPT) 27 U/L (8-55); AST (SGOT) 24 U/L (5-34); Albumin 3.6 g/dL (3.4-4.8); Alkaline Phosphatase 85 U/L (40-150); Anion Gap 16 mmol/L (10-20); BUN (Urea Nitrogen) 12 mg/dL (9.8-20.1); Bilirubin, Total 0.5 mg/dL (0.2-1.2); CK (CPK) 16 U/L (29-168); Calc. Creatinine Clearance 0 mL/min (70-130); Calcium 8.8 mg/dL (7.8-10.44); Carbon Dioxide 30 mmol/L (23-31); Chloride 90 mmol/L (98-107); Estimated GFR-MDRD 70; Globulin 3.2 g/dL (2.4-3.5); Glucose 157 mg/dL (83-110); Potassium 3.8 mmol/L (3.5-5.1); Protein, Total 6.8 g/dL (6.0-8.3); Sodium 132 mmol/L (136-145)
[2017-11-15 20:25] LABS: CKMB 0.9 ng/mL (0-6.6); Troponin I Less than 0.010 ng/mL (< 0.028)
[2017-11-15 21:43] LABS: Bilirubin Negative (Negative); Blood, Urine Negative (Negative); Clarity CLEAR (Clear); Glucose, Urine (Dipstick) Negative (Negative); Leukocyte Small (Negative); Nitrite Negative (Negative); Protein, Urine (Dipstick) 30 mg/dL (Neg-Trace); Specific Gravity, Urine 1.012 (1.002-1.036)
[2017-11-15 21:45] LABS: Bacteria/HPF None Seen HPF (None Seen); Hyaline Casts/LPF 0-3 HYALINE CAST LPF (0-3 Hyaline); Pathc Cast-AUWi Flag 0.43 (0-2.49); Squamous Epithelial 0-3 HPF (0-3)
[2017-11-15 21:55] LABS: RBC/HPF 0-3 HPF (0-3)
--- NOTE | 2017-11-15 22:04 | CT ---
CTA CHEST WITH CONTRAST: 11/15/17 HISTORY: Pain. COMPARISON: Chest radiograph same day. FINDINGS: CT angiogram chest performed after the intravenous administration of contrast. 3D rendering was provi ded. Heart size is enlarged. There is a large left and moderate right sided pleural effusion. There i s moderate increased anterior mediastinal fluid, somewhat greater than would be expected for recent p ostsurgical change. No proximal segmental pulmonary arterial filling defect. Superior mesenteric artery and celiac trunks are both patent. No thoracic spine compression fracture. No displaced rib fracture. No superficial fluid collections to the sternum or the manubrium. IMPRESSION: 1. No segmental pulmonary arterial filling defect. 2. Abnormal anterior mediastinal fluid and enhancement, greater than would be expected postsurgi britney greater than two weeks out. There is concern for possible anterior mediastinitis. 3. Large left and moderate right sided layering pleural effusions. POS: [facility]
[2017-11-15 23:21] LABS: Troponin I Less than 0.010 ng/mL (< 0.028)
[2017-11-15] MEDS ORDERED: Milk Of Magnesia 30 ML UDCUP PO PRN (23:59)
[2017-11-16] MEDS ORDERED: Ondansetron ODT 4 MG TAB SL PRN (00:03)
[2017-11-16] MEDS ORDERED: Dextrose 50% Abboject 50 ML SYRINGE SLOW IVP PRN (00:03)
[2017-11-16] MEDS ORDERED: Ondansetron HCl/PF 4 MG/2 ML Vial IVP PRN (00:03)
[2017-11-16] MEDS ORDERED: Dextrose 5% in Water 1,000 ML IV PRN (00:03)
[2017-11-16] MEDS ORDERED: HumaLOG 300 UNITS/3 ML VIAL SC PRN (00:03)
[2017-11-16 00:26] VITALS: BMI 28.0
[2017-11-16] MEDS ORDERED: Cefepime 1 GM in Sodium Chloride 0.9% 100 ML IVPB SCH (01:00)
[2017-11-16 01:45] LABS: #Eosinphils 0.5 thou/uL (0.0-0.7); #Lymphocytes 1.7 thou/uL (1.20-3.40); #Neutrophils 9.5 thou/uL (1.40-6.50); %Basophils 0.4 % (0.0-1.0); %Lymphocytes 13.1 % (21.0-51.0); %Monocytes 7.8 % (0.0-10.0); %Neutrophils 74.8 % (42.0-75.0); Hemoglobin 10.4 g/dL (12.0-16.0); Mean Corpuscular HGB CONC 33.2 g/dL (32.0-36.0); Mean Corpuscular Hemoglobin 29.8 pg (27.0-31.0); Mean Corpuscular Volume 89.7 fl (81.0-99.0); Mean Platelet Volume 6.6 fL (7.4-10.4); Platelet Count 334 thou/uL (130-400); Red Blood Cell (RBC) Count 3.49 mill/uL (4.20-5.40); White Blood Cell (WBC) Count 12.7 thou/uL (4.8-10.8)
[2017-11-16 02:12] LABS: Troponin I Less than 0.010 ng/mL (< 0.028)
[2017-11-16 02:36] LABS: Anion Gap 12 mmol/L (10-20); BUN (Urea Nitrogen) 12 mg/dL (9.8-20.1); Calc. Creatinine Clearance 89 mL/min (70-130); Calcium 8.4 mg/dL (7.8-10.44); Carbon Dioxide 30 mmol/L (23-31); Chloride 93 mmol/L (98-107); Estimated GFR-MDRD 85; Glucose 87 mg/dL (83-110); Potassium 3.6 mmol/L (3.5-5.1); Sodium 131 mmol/L (136-145)
[2017-11-16] MEDS ORDERED: traMADol HCl 50 MG TAB PO PRN (04:07)
[2017-11-16] MEDS ORDERED: Furosemide 20 MG/2 ML VIAL SLOW IVP SCH (04:45)
[2017-11-16] MEDS ORDERED: Chlorpheniramine Maleate 4 MG PO PRN (05:00)
[2017-11-16] MEDS: Levothyroxine Sodium 112 MCG TAB PO SCH (05:28)
--- NOTE | 2017-11-16 06:52 | HP ---
PRIMARY CARE PHYSICIAN: Sandeep Waller M.D. PRESENTING COMPLAINT: Chest pain. HISTORY OF PRESENT ILLNESS: Ms. Yoly Leal is a 77-year-old female with a past medical history of CAD, hypertension, DM, and hypothyroidism. She recently had three-vessel bypass grafting to the LAD, right PDA, and right posterolateral in 10/2017 and she reports feeling pain today which was left- sided, which she at first thought it was gas and was taking medications without relief; however, the pain became constant, was pleuritic in nature, sharp, 7-8/ 10 (aggravated by taking deep breaths) did not radiate. There was no associated nausea, vomiting, diarrhea or constipation. She denies shortness of breath, palpitations, PND, orthopnea, or lower extremity edema. Due to continued nature of the pain, she decided to present to the emergency room. At the emergency room, her vital signs were stable and she was found to have leukocytosis. A CT scan done was suggestive of possible mediastinitis with large left and moderate right-sided layering pleural effusions. She was then admitted for further management. PAST MEDICAL HISTORY: CAD, hypertension, diabetes mellitus type 2, hypothyroidism. PAST SURGICAL HISTORY: CABG 10/24 and sent to [facility], hysterectomy, "bladder surgery", left knee replacement. FAMILY HISTORY: Reviewed and noncontributory. SOCIAL HISTORY: She does not smoke cigarettes, drink alcohol or use illicit drugs. ALLERGIES: PENICILLIN, KEFLEX, CHOCOLATE FLAVOR, FENOFIBRATE, CORTISONE, EGGS, PENICILLINS, PNEUMOCOCCAL VACCINE. REVIEW OF SYSTEMS: All systems reviewed and negative except as stated in HPI. HOME MEDICATIONS: Acetaminophen 1300 mg q.8 hours p.r.n., ascorbic acid 500 mg daily, fluticasone propionate 1 spray in each naris daily, multivitamins 1 tablet daily, amiodarone 200 mg b.i.d., chlorpheniramine 4 mg p.o. q.4 hours p.r.n., glipizide 5 mg q.a.m., hydrocortisone cream apply topically b.i.d., levothyroxine sodium 112 mcg daily, metformin 500 mg q.a.m. and 1000 mg q.p.m., metoprolol tartrate 25 mg b.i.d., Xarelto 20 mg q.p.m., rosuvastatin 10 mg daily , tramadol 50 mg q.6 hours p.r.n., valsartan 80 mg daily. PHYSICAL EXAMINATION: VITAL SIGNS: On arrival, blood pressure was 186/90 but improved to 152/81, pulse rate was 96, respiratory rate 16, oxygen saturation 93% on room air, temperature 98.3 degrees Fahrenheit. GENERAL: Not in acute distress, lying comfortably in bed. HEENT: Normocephalic, atraumatic. Not pale, anicteric. Moist mucous membranes. PERRLA. EOMI. NECK: Supple, full range of movement. No JVD. RESPIRATORY: Vesicular breath sounds bilaterally. No wheezes, rales or rhonchi. CARDIOVASCULAR: S1, S2 only. No murmurs, rubs or gallops. Regular rate and rhythm. ABDOMEN: Soft, nontender, nondistended. Bowel sounds normoactive. MUSCULOSKELETAL: No edema. SKIN: Warm, dry, perfused. No rashes or lesions. PSYCHIATRIC: Alert and well oriented to time, place and person. Denies SI or HI. Normal mood and affect. NEUROLOGIC: No focal deficits. LABORATORY DATA: Leukocytosis of 16,800. CBC otherwise unremarkable. D-dimer 1.69. Chemistry, mild hyponatremia 132. Troponin trended on less than 0.010. BNP 236, which is increased from August when it was 112. IMAGING: CTA chest/thorax as stated in HPI. Chest x-ray showed mild interval increase in layering bilateral pleural effusions. ASSESSMENT AND PLAN: 1. Chest pain: Concern for possible mediastinitis as patient just recently had CABG and complaints with chest pain and CT findings suggestive of possible mediastinitis. She has been started on IV vancomycin and ciprofloxacin, which will cover for gram positive cocci and gram negatives respectively. Dr. Perez has been informed and will review the patient in the morning. We will also obtain blood cultures and follow up on the results. 2. Coronary artery disease, status post coronary artery bypass graft: We will resume home medications once confirmed. The patient does not seem to be having a myocardial infarction and troponins have been negative 3. Hypothyroidism: We will obtain a TSH and continue home Synthroid. 4. Type 2 diabetes mellitus: She is at goal. We will resume home medication and placed on sliding scale insulin, fingerstick glucose before meals and at bedtime and hypoglycemia protocol. 5. Hyperlipidemia: We will continue a statin. 6. Deep venous thrombosis prophylaxis with Xarelto . 7. Code status: FULL CODE. MTDD
[2017-11-16] MEDS ORDERED: Magnesium Sulfate 4 GM in Sodium Chloride 0.9% 250 ML 250 ML IVPB SCH (07:15)
[2017-11-16] MEDS ORDERED: metFORMIN 500 MG TAB PO SCH (08:00)
[2017-11-16] MEDS: Vancomycin HCl 1 GM in Premix Bag 1 BAG IVPB SCH ×2 (08:40→22:23)
[2017-11-16] MEDS: Hydrocortisone 1% Cream 30 GM TUBE TOP SCH ×2 (08:40→22:23)
[2017-11-16] MEDS: Metoprolol Tartrate 25 MG TAB PO SCH ×2 (08:41→22:23)
[2017-11-16] MEDS: Valsartan 80 MG TAB PO SCH (08:41)
[2017-11-16] MEDS: Ezetimibe 10 MG TAB PO SCH (08:41)
[2017-11-16] MEDS: Rosuvastatin 10 MG TAB PO SCH (08:41)
[2017-11-16] MEDS: Potassium Chloride 20 MEQ TAB PO SCH (08:41)
[2017-11-16] MEDS: Amiodarone 200 MG TAB PO SCH ×2 (08:41→22:23)
[2017-11-16] MEDS: Docusate 100 MG CAP PO SCH ×2 (08:42→22:23)
[2017-11-16] MEDS ORDERED: Heparin 5,000 UNITS/ML VIAL SC SCH (09:00)
[2017-11-16 10:09] LABS: Hemoglobin 10.6 g/dL (12.0-16.0); Platelet Count 347 thou/uL (130-400)
[2017-11-16] MEDS: HumaLOG 300 UNITS/3 ML VIAL SC PRN (11:58)
--- NOTE | 2017-11-16 14:28 | CON ---
DATE OF ADMISSION: 11/15/2017 DATE OF CONSULTATION: 11/16/2017 HISTORY OF PRESENT ILLNESS: Ms. eLal underwent coronary artery bypass grafting x3 on 10/24/2017. She represented through the emergency room yesterday with pleuritic sounding left chest pain. She had p ain on inspiration in her left lateral chest wall. She has had no fever. She has had no chills. Sh e has had no drainage from her sternal incision. She has had no erythema of the sternal incision. T he leg incisions were multiple incisions that have been closed with maria l and all have no signs of infection. At admission, she had a chest CTA in the emergency department. On the CTA, the radiologist read out fluid collection around the sternum and was concerning for mediastinitis. At the time of her admissi on, her white blood cell count was 16.8. At the time of discharge from the hospital, her white blood cell count was 18.9, currently is 12.7 after being started on antibiotics in the hospital. Since in the hospital, she has had no fevers. She feels "fine." PHYSICAL EXAMINATION: Her sternal incision is healing nicely. There is no erythema or induration. It is nontender to palpation. Area of pain in her chest was on the left lateral chest wall. ASSESSMENT AND PLAN: Pleuritic left chest pain post-coronary bypass grafting 3 weeks ago. I see not marilee on physical exam to suggest any issue with her sternal incision. Anti-inflammatories and sympto matic pain control are probably all she needs.
--- NOTE | 2017-11-16 15:06 | PDOC.PN ---
- Subjective Encounter Start Date: 11/16/17 Encounter Start Time: 10:00 Subjective: pt up in bed states she felt weak and was shaking when she got up - Objective Resuscitation Status: Resuscitation Status FULL:Full Resuscitation Vital Signs & Weight: Vital Signs (12 hours) Temp Pulse Resp BP Pulse Ox 11/16/17 12:10 97.9 F 68 18 157/71 H 95 11/16/17 08:35 98.0 F 75 18 172/77 H 98 11/16/17 03:51 96.3 F L 73 18 179/81 H 97 Weight Weight 179 lb 4.8 oz I&O: 11/15/17 11/16/17 11/17/17 06:59 06:59 06:59 Output Total 1800 Balance -1800 Result Diagrams: 11/16/17 09:54 11/16/17 01:38 Additional Labs: Accuchecks 11/16/17 11/16/17 10:40 05:47 POC Glucose 177 H 127 H Phys Exam - Physical Examination HEENT: PERRLA, moist MMs, sclera anicteric, TM's clear, oral pharynx no lesions , 2+ tonsils Neck: no nodes, no JVD, supple, full ROM decreased breath sound to bilateral lower lung bases mid sterunum incision intact Gastrointestinal: soft, non-tender, no distention, positive bowel sounds Musculoskeletal: no edema, pulses present, edema present Dx/Plan (1) Chest pain Code(s): R07.9 - CHEST PAIN, UNSPECIFIED Status: Acute (2) CAD (coronary artery disease) Code(s): I25.10 - ATHSCL HEART DISEASE OF [place] CORONARY ARTERY W/O ANG PCTRS Status: Acute (3) Hypomagnesemia Code(s): E83.42 - HYPOMAGNESEMIA Status: Acute - Plan ct chest indicated anterior mediastinal fluid. pt has no leukocytosis. will continue abx for now. significant effusion on left side which could be causing pt's chest pain. will continue home meds. Pt recent s/op CABG. Possible ernst syndrome? Review of Systems - Review of Systems Eyes: negative: Pain, Vision Change, Conjunctivae Inflammation, Eyelid Inflammation, Redness, Other ENT: negative: Ear Pain, Ear Discharge, Nose Pain, Nose Discharge, Nose Congestion, Mouth Pain, Mouth Swelling, Throat Pain, Throat Swelling, Other Respiratory: negative: Cough, Dry, Shortness of Breath, Hemoptysis, SOB with Excertion, Pleuritic Pain, Sputum, Wheezing Cardiovascular: negative: chest pain, palpitations, orthopnea, paroxysmal nocturnal dyspnea, edema, light headedness, other Gastrointestinal: negative: Nausea, Vomiting, Abdominal Pain, Diarrhea, Constipation, Melena, Hematochezia, Other Neurological: Weakness - Medications/Allergies Allergies/Adverse Reactions: Allergies Allergy/AdvReac Type Severity Reaction Status Date / Time cephalexin monohydrate Allergy Rash Verified 11/16/17 00:42 [From Keflex] chocolate flavor Allergy Rash Verified 11/16/17 00:42 choline fenofibrate Allergy Verified 11/16/17 00:42 [From Trilipix] cortisone Allergy Verified 11/16/17 00:42 egg Allergy Verified 11/16/17 00:42 Penicillins Allergy Verified 11/16/17 00:42 pneumococcal vaccine Allergy Verified 11/16/17 00:42 prednisone Allergy Verified 11/16/17 00:42 Tetanus Vaccines and Toxoid Allergy Verified 11/16/17 00:42 [Tetanus Vaccines & Toxoid] Medications: Current Medications Acetaminophen (Tylenol) 650 mg PO Q4H PRN PRN Reason: Headache/Fever or Pain Amiodarone HCl (Cordarone) 200 mg PO BID [facility] Last Admin: 11/16/17 08:41 Dose: 200 mg Dextrose/Water (Dextrose 50%) 25 gm SLOW IVP PRN PRN PRN Reason: Hypoglycemia Docusate Sodium (Colace) 100 mg PO BID [facility] Last Admin: 11/16/17 08:42 Dose: 100 mg Ezetimibe (Zetia) 10 mg PO DAILY [facility] Last Admin: 11/16/17 08:41 Dose: 10 mg Glipizide (Glucotrol Xl) 5 mg PO QAM-[facility] Last Admin: 11/16/17 08:41 Dose: 5 mg Glucagon (Glucagon) 1 mg IM PRN PRN PRN Reason: Hypoglycemia Hydrocortisone/Aloe (Hydrocortisone 1% Cream) 0 gm TOP BID [facility] Last Admin: 11/16/17 08:40 Dose: 1 applic Vancomycin HCl 1 gm/ Device 200 mls @ 200 mls/hr IVPB Q12HR [facility] Last Admin: 11/16/17 08:40 Dose: 200 mls Dextrose/Water (D5w) 1,000 mls @ 0 mls/hr IV .Q0M PRN; As Directed PRN Reason: Hypoglycemia Ciprofloxacin/Dextrose 400 mg/ (Device) 200 mls @ 200 mls/hr IVPB 0200,1400 [facility] Last Admin: 11/16/17 14:41 Dose: 200 mls Cefepime HCl 2 gm/ Sodium (Chloride) 100 mls @ 200 mls/hr IVPB 0300,1500 [facility] Insulin Human Lispro (Humalog) 0 units SC .MILD SLIDING SCALE PRN PRN Reason: Mild Correctional Scale Last Admin: 11/16/17 11:58 Dose: 2 unit Insulin Human Lispro (Humalog) 0 units SC .BEDTIME SLIDING SC PRN PRN Reason: Bedtime Correctional Scale Levothyroxine Sodium (Synthroid) 112 mcg PO 0600 [facility] Last Admin: 11/16/17 05:28 Dose: 112 mcg Magnesium Hydroxide (Milk Of Magnesium) 30 ml PO DAILYPRN PRN PRN Reason: Constipation Metformin HCl (Glucophage) 1,000 mg PO QPM-[facility] Metformin HCl (Glucophage) 500 mg PO QAM-[facility] Metoprolol Tartrate (Lopressor) 25 mg PO BID [facility] Last Admin: 11/16/17 08:41 Dose: 25 mg Morphine Sulfate (Morphine) 4 mg SLOW IVP Q4H PRN PRN Reason: Pain Chlorpheniramine (Maleate 4 Mg) 0 each PO Q4H PRN PRN Reason: SINUS DRAINAGE Potassium Chloride (K-Dur) 20 meq PO QAM-WM [facility] Last Admin: 11/16/17 08:41 Dose: 20 meq Rivaroxaban (Xarelto) 20 mg PO QPM-[facility] Rosuvastatin Calcium (Crestor) 10 mg PO DAILY [facility] Last Admin: 11/16/17 08:41 Dose: 10 mg Tramadol HCl (Ultram) 50 mg PO Q6H PRN PRN Reason: Moderate Pain (4-6) Valsartan (Diovan) 80 mg PO DAILY [facility] Last Admin: 11/16/17 08:41 Dose: 80 mg
[2017-11-16] MEDS: Cefepime 2 GM in Sodium Chloride 0.9% 100 ML IVPB SCH (15:56)
[2017-11-16] MEDS: Acetaminophen 325 MG TAB PO PRN (15:57)
[2017-11-16] MEDS: Rivaroxaban 10 MG TAB PO SCH (16:41)
[2017-11-17] MEDS: Cefepime 2 GM in Sodium Chloride 0.9% 100 ML IVPB SCH (03:17)
[2017-11-17] MEDS: Levothyroxine Sodium 112 MCG TAB PO SCH (05:54)
[2017-11-17] MEDS: Acetaminophen 325 MG TAB PO PRN (05:54)
[2017-11-17] MEDS: Amiodarone 200 MG TAB PO SCH ×2 (07:47→20:18)
[2017-11-17] MEDS: Docusate 100 MG CAP PO SCH ×2 (07:47→20:18)
[2017-11-17] MEDS: Hydrocortisone 1% Cream 30 GM TUBE TOP SCH ×2 (07:48→20:18)
[2017-11-17] MEDS: Metoprolol Tartrate 25 MG TAB PO SCH ×2 (07:48→20:18)
[2017-11-17] MEDS: Rosuvastatin 10 MG TAB PO SCH (07:48)
[2017-11-17] MEDS: Valsartan 80 MG TAB PO SCH (07:48)
[2017-11-17] MEDS: Ezetimibe 10 MG TAB PO SCH (07:48)
[2017-11-17] MEDS: Vancomycin HCl 1 GM in Premix Bag 1 BAG IVPB SCH (07:49)
[2017-11-17] MEDS: Magnesium Oxide 400 MG TAB PO SCH (09:52)
[2017-11-17 10:11] LABS: Anion Gap 13 mmol/L (10-20); BUN (Urea Nitrogen) 9 mg/dL (9.8-20.1); Calc. Creatinine Clearance 85 mL/min (70-130); Calcium 8.4 mg/dL (7.8-10.44); Carbon Dioxide 28 mmol/L (23-31); Chloride 92 mmol/L (98-107); Estimated GFR-MDRD 81; Glucose 277 mg/dL (83-110); Potassium 3.7 mmol/L (3.5-5.1); Sodium 129 mmol/L (136-145)
[2017-11-17] MEDS: Potassium Chloride 20 MEQ TAB PO SCH (10:16)
[2017-11-17 10:19] LABS: Vancomycin, Trough 52.5 ug/mL
[2017-11-17 11:14] LABS: Band 4 % (5-11); Eosinophils 3 % (0-10); Hemoglobin 10.9 g/dL (12.0-16.0); Lymphocytes 17 % (21-51); MDiff Complete? YES; Mean Corpuscular HGB CONC 33.2 g/dL (32.0-36.0); Mean Corpuscular Hemoglobin 29.9 pg (27.0-31.0); Mean Corpuscular Volume 90.1 fl (81.0-99.0); Mean Platelet Volume 7.3 fL (7.4-10.4); Monocytes 9 % (0-10); Neutrophil 67 % (42-75); Platelet Count 326 thou/uL (130-400); RBC Distribution Width 12.9 % (11.5-14.5); RBC Morphology Normal; Red Blood Cell (RBC) Count 3.63 mill/uL (4.20-5.40); White Blood Cell (WBC) Count 10.7 thou/uL (4.8-10.8)
[2017-11-17] MEDS: HumaLOG 300 UNITS/3 ML VIAL SC PRN (11:18)
[2017-11-17] MEDS: Rivaroxaban 10 MG TAB PO SCH (17:17)
[2017-11-17] MEDS: hydrALAZINE 20 MG/ML VIAL SLOW IVP PRN (18:29)
[2017-11-17 20:34] LABS: Vancomycin, Trough 19.4 ug/mL
--- NOTE | 2017-11-17 23:39 | DIS ---
DATE OF ADMISSION: 11/15/2017 DATE OF DISCHARGE: 11/17/2017 DISCHARGE DIAGNOSES: 1. Chest pain. 2. Coronary artery disease status post bypass. 3. Hypomagnesemia. HOSPITAL COURSE: The patient is a very pleasant 77-year-old female with a recent bypass done in October, who presents to the hospital with complaints of chest pain. The patient underwent a CTA which indic ated no PE; however, did have some abnormal anterior mediastinal fluid and enhancement concerns for a nterior mediastinitis. The patient also had a large left and moderate right-sided pleural effusion. The patient was seen by Cardiothoracic, no intervention was done. I thought that the mediastinitis was most likely postoperative changes, no infection was noted. The patient initially was put on anti biotics which were then discontinued. The patient was walked in the hallway. Her sats never fell le ss than 95% on room air. I did try to put the patient on steroids concern for possible Joe's sy ndrome since this was her post-bypass; however, she is allergic to it, so I did put her on some ibupr ofen for about 5 days twice a day. We will check a BMP and a mag on . Her magnesium has bee n replaced. We will continue to monitor. DISCHARGE MEDICATIONS: Are as the following, 1. Ibuprofen 200 mg p.o. twice a day. 2. She is on amiodarone 200 mg b.i.d. 3. Colace 100 mg b.i.d. 4. Zetia 10 mg daily. 5. Glipizide 5 mg q.a.m. 6. She is also on levothyroxine 112 mcg daily. 7. Magnesium oxide is new medication 400 mg daily. 8. Metformin 500 mg a.m. and 1000 p.m. 9. Metoprolol 25 mg b.i.d. 10. Xarelto 20 mg at bedtime. 11. Rosuvastatin 10 mg daily. 12. Tramadol 50 mg q.6 hours p.r.n. 13. Valsartan 80 mg daily. PHYSICAL EXAMINATION: VITAL SIGNS: Temperature of 98.7, heart rate of 78, respirations 16, sats 97% on room air, blood pre ssure 152/70. GENERAL: She is awake, alert, oriented x3, does not appear in any distress. The patient states she feels much better today, does not have any chest discomfort. CARDIOVASCULAR: S1, S2 present. No murmurs, rubs, or gallops. LUNGS: She has got decreased breath sounds to left lower lung area and mild decreased to the right l ower lung area. ABDOMEN: Soft, nontender. Bowel sounds present x2. EXTREMITIES: No edema. DISCHARGE INSTRUCTIONS: The patient will be discharged home. Follow up with Cardiovascular Surgery and also PCP.
[2017-11-18] MEDS: Acetaminophen 325 MG TAB PO PRN ×2 (00:35→17:27)
[2017-11-18] MEDS: Levothyroxine Sodium 112 MCG TAB PO SCH (05:04)
[2017-11-18] MEDS: hydrALAZINE 20 MG/ML VIAL SLOW IVP PRN (05:05)
[2017-11-18] MEDS ORDERED: Furosemide 20 MG/2 ML VIAL SLOW IVP SCH (08:00)
[2017-11-18 08:30] LABS: Anion Gap 12 mmol/L (10-20); BUN (Urea Nitrogen) 9 mg/dL (9.8-20.1); Calc. Creatinine Clearance 90 mL/min (70-130); Calcium 8.7 mg/dL (7.8-10.44); Carbon Dioxide 30 mmol/L (23-31); Chloride 93 mmol/L (98-107); Estimated GFR-MDRD 85; Glucose 124 mg/dL (83-110); Potassium 3.4 mmol/L (3.5-5.1); Sodium 132 mmol/L (136-145)
[2017-11-18] MEDS: Potassium Chloride 20 MEQ TAB PO SCH (08:30)
[2017-11-18] MEDS: metFORMIN 500 MG TAB PO SCH (08:30)
[2017-11-18] MEDS: Docusate 100 MG CAP PO SCH ×2 (08:30→20:38)
[2017-11-18] MEDS: Amiodarone 200 MG TAB PO SCH ×2 (08:30→20:38)
[2017-11-18] MEDS: Ezetimibe 10 MG TAB PO SCH (08:30)
[2017-11-18] MEDS: Rosuvastatin 10 MG TAB PO SCH (08:31)
[2017-11-18] MEDS: Hydrocortisone 1% Cream 30 GM TUBE TOP SCH ×2 (08:31→20:39)
[2017-11-18] MEDS: Magnesium Oxide 400 MG TAB PO SCH (08:31)
[2017-11-18] MEDS: Valsartan 80 MG TAB PO SCH (08:31)
[2017-11-18] MEDS: Metoprolol Tartrate 25 MG TAB PO SCH ×2 (08:31→20:38)
[2017-11-18] MEDS: HumaLOG 300 UNITS/3 ML VIAL SC PRN (11:11)
[2017-11-18] MEDS ORDERED: Potassium Chloride 20 MEQ TAB PO SCH (12:45)
[2017-11-18] MEDS ORDERED: metFORMIN 500 MG TAB PO SCH (17:00)
[2017-11-18] MEDS: Rivaroxaban 10 MG TAB PO SCH (17:28)
[2017-11-19] MEDS: Levothyroxine Sodium 112 MCG TAB PO SCH (05:45)
--- NOTE | 2017-11-19 06:41 | PDOC.PN ---
- Subjective Encounter Start Date: 11/18/17 Encounter Start Time: 11:00 Subjective: pt up in bed feel a little weak today - Objective Resuscitation Status: Resuscitation Status FULL:Full Resuscitation Vital Signs & Weight: Vital Signs (12 hours) Temp Pulse Resp BP BP Pulse Ox 11/19/17 04:00 99.3 F 82 20 174/79 H 98 11/18/17 20:04 98.3 F 90 14 134/63 98 11/18/17 20:03 98.3 F 90 14 98 Weight Weight 181 lb 8 oz I&O: 11/17/17 11/18/17 11/19/17 06:59 06:59 06:59 Intake Total 3954 356 0347 Output Total 2700 1750 1400 Balance -1180 -1270 -60 Result Diagrams: 11/17/17 09:47 11/18/17 07:56 Additional Labs: Accuchecks 11/19/17 11/18/17 11/18/17 05:57 20:36 16:53 POC Glucose 109 135 H 117 H 11/18/17 10:49 POC Glucose 245 H Phys Exam - Physical Examination HEENT: PERRLA, moist MMs, sclera anicteric, TM's clear, oral pharynx no lesions , 2+ tonsils Neck: no nodes, no JVD, supple, full ROM decreased breath sound to bilateral bases Cardiovascular: RRR, no significant murmur, no rub, gallop, irregular Dx/Plan (1) Chest pain Code(s): R07.9 - CHEST PAIN, UNSPECIFIED Status: Acute (2) CAD (coronary artery disease) Code(s): I25.10 - ATHSCL HEART DISEASE OF [place] CORONARY ARTERY W/O ANG PCTRS Status: Acute (3) Hypomagnesemia Code(s): E83.42 - HYPOMAGNESEMIA Status: Acute - Plan * . pt was discharged 11/17 but insurance auth is taking long. pt given one dose of lasix. Discussed with pt that will start antiinflammatory but She states she does not like steroids and has had peptic ulcers in the past using NASIDS. Recommended to take low dose ibuprofen for 5 days with food and will provide gi ppx. pt is not hypoxic no recommendation of throacentesis. Review of Systems - Review of Systems Respiratory: negative: Cough, Dry, Shortness of Breath, Hemoptysis, SOB with Excertion, Pleuritic Pain, Sputum, Wheezing Cardiovascular: negative: chest pain, palpitations, orthopnea, paroxysmal nocturnal dyspnea, edema, light headedness, other Gastrointestinal: negative: Nausea, Vomiting, Abdominal Pain, Diarrhea, Constipation, Melena, Hematochezia, Other Genitourinary: negative: Dysuria, Frequency, Incontinence, Hematuria, Retention , Other Neurological: Weakness - Medications/Allergies Allergies/Adverse Reactions: Allergies Allergy/AdvReac Type Severity Reaction Status Date / Time cephalexin monohydrate Allergy Rash Verified 11/16/17 00:42 [From Keflex] chocolate flavor Allergy Rash Verified 11/16/17 00:42 choline fenofibrate Allergy Verified 11/16/17 00:42 [From Trilipix] cortisone Allergy Verified 11/16/17 00:42 egg Allergy Verified 11/16/17 00:42 Penicillins Allergy Verified 11/16/17 00:42 pneumococcal vaccine Allergy Verified 11/16/17 00:42 prednisone Allergy Verified 11/16/17 00:42 Tetanus Vaccines and Toxoid Allergy Verified 11/16/17 00:42 [Tetanus Vaccines & Toxoid] Medications: Current Medications Acetaminophen (Tylenol) 650 mg PO Q4H PRN PRN Reason: Headache/Fever or Pain Last Admin: 11/18/17 17:27 Dose: 650 mg Amiodarone HCl (Cordarone) 200 mg PO BID [facility] Last Admin: 11/18/17 20:38 Dose: 200 mg Dextrose/Water (Dextrose 50%) 25 gm SLOW IVP PRN PRN PRN Reason: Hypoglycemia Docusate Sodium (Colace) 100 mg PO BID [facility] Last Admin: 11/18/17 20:38 Dose: 100 mg Ezetimibe (Zetia) 10 mg PO DAILY [facility] Last Admin: 11/18/17 08:30 Dose: 10 mg Fluticasone Propionate (Flonase Nasal [place]) 1 gm NASAL DAILY [facility] Glipizide (Glucotrol Xl) 5 mg PO [facility] Last Admin: 11/18/17 08:29 Dose: 5 mg Glucagon (Glucagon) 1 mg IM PRN PRN PRN Reason: Hypoglycemia Hydralazine HCl (Apresoline) 5 mg SLOW IVP Q6HR PRN PRN Reason: Hypertension Last Admin: 11/18/17 05:05 Dose: 5 mg Hydrocortisone/Aloe (Hydrocortisone 1% Cream) 0 gm TOP BID [facility] Last Admin: 11/18/17 20:39 Dose: 1 applic Dextrose/Water (D5w) 1,000 mls @ 0 mls/hr IV .Q0M PRN; As Directed PRN Reason: Hypoglycemia Insulin Human Lispro (Humalog) 0 units SC .MILD SLIDING SCALE PRN PRN Reason: Mild Correctional Scale Last Admin: 11/18/17 11:11 Dose: 3 unit Insulin Human Lispro (Humalog) 0 units SC .BEDTIME SLIDING SC PRN PRN Reason: Bedtime Correctional Scale Levothyroxine Sodium (Synthroid) 112 mcg PO 0600 [facility] Last Admin: 11/19/17 05:45 Dose: 112 mcg Magnesium Hydroxide (Milk Of Magnesium) 30 ml PO DAILYPRN PRN PRN Reason: Constipation Magnesium Oxide (Magnesium Oxide) 400 mg PO DAILY [facility] Last Admin: 11/18/17 08:31 Dose: 400 mg Metformin HCl (Glucophage) 1,000 mg PO QPM-[facility] Last Admin: 11/18/17 17:28 Dose: 1,000 mg Metformin HCl (Glucophage) 500 mg PO QA-[facility] Last Admin: 11/18/17 08:30 Dose: 500 mg Metoprolol Tartrate (Lopressor) 25 mg PO BID [facility] Last Admin: 11/18/17 20:38 Dose: 25 mg Morphine Sulfate (Morphine) 4 mg SLOW IVP Q4H PRN PRN Reason: Pain Chlorpheniramine (Maleate 4 Mg) 0 each PO Q4H PRN PRN Reason: SINUS DRAINAGE Potassium Chloride (K-Dur) 20 meq PO QA-[facility] Last Admin: 11/18/17 08:30 Dose: Not Given Rivaroxaban (Xarelto) 20 mg PO QPM-[facility] Last Admin: 11/18/17 17:28 Dose: 20 mg Rosuvastatin Calcium (Crestor) 10 mg PO DAILY [facility] Last Admin: 11/18/17 08:31 Dose: 10 mg Tramadol HCl (Ultram) 50 mg PO Q6H PRN PRN Reason: Moderate Pain (4-6) Last Admin: 11/19/17 03:30 Dose: 50 mg Valsartan (Diovan) 80 mg PO DAILY [facility] Last Admin: 11/18/17 08:31 Dose: 80 mg
[2017-11-19 08:21] VITALS: TEMP 97.2
[2017-11-19] MEDS: Docusate 100 MG CAP PO SCH (08:53)
[2017-11-19] MEDS: Valsartan 80 MG TAB PO SCH (08:53)
[2017-11-19] MEDS: Rosuvastatin 10 MG TAB PO SCH (08:53)
[2017-11-19] MEDS: Magnesium Oxide 400 MG TAB PO SCH (08:53)
[2017-11-19] MEDS: Ezetimibe 10 MG TAB PO SCH (08:53)
[2017-11-19] MEDS: Potassium Chloride 20 MEQ TAB PO SCH (08:54)
[2017-11-19] MEDS: metFORMIN 500 MG TAB PO SCH (08:54)
[2017-11-19] MEDS: Amiodarone 200 MG TAB PO SCH (08:54)
[2017-11-19] MEDS: Metoprolol Tartrate 25 MG TAB PO SCH (08:54)
[2017-11-19] MEDS: Hydrocortisone 1% Cream 30 GM TUBE TOP SCH (08:55)
[2017-11-19] MEDS: Acetaminophen 325 MG TAB PO PRN (08:56)
[2017-11-19] MEDS ORDERED: Fluticasone Propionate Nasal Spray 16 gm Bottle NASAL SCH (09:00)
--- NOTE | 2017-11-19 14:25 | PDOC.PN ---
- Subjective Encounter Start Date: 11/19/17 Encounter Start Time: 10:00 Subjective: pt up in chair no complains - Objective Resuscitation Status: Resuscitation Status FULL:Full Resuscitation Vital Signs & Weight: Vital Signs (12 hours) Temp Pulse Resp BP BP Pulse Ox 11/19/17 08:00 97.2 F L 86 18 142/65 H 98 11/19/17 04:00 99.3 F 82 20 174/79 H 98 Weight Weight 181 lb 8 oz I&O: 11/18/17 11/19/17 11/20/17 06:59 06:59 06:59 Intake Total 480 1340 360 Output Total 1750 1400 Balance -1270 -60 360 Result Diagrams: 11/17/17 09:47 11/18/17 07:56 Additional Labs: Accuchecks 11/19/17 11/19/17 11/18/17 11:06 05:57 20:36 POC Glucose 196 H 109 135 H 11/18/17 16:53 POC Glucose 117 H Phys Exam - Physical Examination HEENT: PERRLA, moist MMs, sclera anicteric, TM's clear, oral pharynx no lesions , 2+ tonsils Neck: no nodes, no JVD, supple, full ROM decreased breath sound to bilateral bases Cardiovascular: RRR, no significant murmur, no rub, gallop, irregular Gastrointestinal: soft, non-tender, no distention, positive bowel sounds Dx/Plan (1) Chest pain Code(s): R07.9 - CHEST PAIN, UNSPECIFIED Status: Acute (2) CAD (coronary artery disease) Code(s): I25.10 - ATHSCL HEART DISEASE OF [place] CORONARY ARTERY W/O ANG PCTRS Status: Acute (3) Hypomagnesemia Code(s): E83.42 - HYPOMAGNESEMIA Status: Acute - Plan pt sitting up in chair does not feel sob. going to rehab today * . Review of Systems - Review of Systems ENT: negative: Ear Pain, Ear Discharge, Nose Pain, Nose Discharge, Nose Congestion, Mouth Pain, Mouth Swelling, Throat Pain, Throat Swelling, Other Respiratory: negative: Cough, Dry, Shortness of Breath, Hemoptysis, SOB with Excertion, Pleuritic Pain, Sputum, Wheezing Cardiovascular: negative: chest pain, palpitations, orthopnea, paroxysmal nocturnal dyspnea, edema, light headedness, other Gastrointestinal: negative: Nausea, Vomiting, Abdominal Pain, Diarrhea, Constipation, Melena, Hematochezia, Other - Medications/Allergies Allergies/Adverse Reactions: Allergies Allergy/AdvReac Type Severity Reaction Status Date / Time cephalexin monohydrate Allergy Rash Verified 11/16/17 00:42 [From Keflex] chocolate flavor Allergy Rash Verified 11/16/17 00:42 choline fenofibrate Allergy Verified 11/16/17 00:42 [From Trilipix] cortisone Allergy Verified 11/16/17 00:42 egg Allergy Verified 11/16/17 00:42 Penicillins Allergy Verified 11/16/17 00:42 pneumococcal vaccine Allergy Verified 11/16/17 00:42 prednisone Allergy Verified 11/16/17 00:42 Tetanus Vaccines and Toxoid Allergy Verified 11/16/17 00:42 [Tetanus Vaccines & Toxoid]
[2017-11-19 14:45] VITALS: BP 140/78
== END 2017-11-19 14:20 | DRG 313 ==
LOC: ERS 19:22 → 2NO 22:35
PROVIDERS: ADMIT Internal Medicine; ATTEND Internal Medicine
DX: R07.9 Chest pain, unspecified (principal); J91.8 Pleural effusion in other conditions classified elsewhere; I24.1 Dressler's syndrome; I25.10 Atherosclerotic heart disease of native coronary artery without angina pectoris; E03.9 Hypothyroidism, unspecified; E11.9 Type 2 diabetes mellitus without complications; E78.5 Hyperlipidemia, unspecified; E83.42 Hypomagnesemia; Z95.1 Presence of aortocoronary bypass graft; Z79.4 Long term (current) use of insulin; Z96.652 Presence of left artificial knee joint
CPT/HCPCS: 36415; 36416; 71045; 71275; 80048; 80053; 80202; 81003; 81015; 82553; 83735; 83880; 84484; 85007; 85025; 85027; 85379; 87040; 87086; 93005; 96365; G8978-GP-CL; G8979-GP-CK; G8987-GO-CJ; G8988-GO-CI; J0360; J0692; J0744; J1940; J3370; J3475; J7050

== ENCOUNTER 2017-12-30 21:51 | Emergency (ER) | payer MEDICARE ==
--- NOTE | 2017-12-30 22:33 | RAD ---
ONE VIEW CHEST: 12/30/17 COMPARISON: 11/15/17 HISTORY: Pain. FINDINGS: Persistent opacification of the left hemithorax with obscuration of the left heart border and left he midiaphragm. There is suggestion of pleural and parenchymal changes. The degree of opacification has decreased. Stable aeration of the right lung. Atherosclerosis of the aorta is noted. No pneumothorax or osseous abnormality. IMPRESSION: Persistent opacification left hemithorax due to pleural and parenchymal changes. When compared to the prior exam, there is improved aeration of the left lung base. Nevertheless, continued surveillance i s recommended. POS: [facility]
[2017-12-30 22:37] LABS: #Eosinphils 0.3 thou/uL (0.0-0.7); #Lymphocytes 2.9 thou/uL (1.20-3.40); #Monocytes 0.7 thou/uL (0.11-0.59); #Neutrophils 6.6 thou/uL (1.40-6.50); %Basophils 0.4 % (0.0-1.0); %Eosinophils 2.7 % (0.0-10.0); %Lymphocytes 27.3 % (21.0-51.0); %Monocytes 6.9 % (0.0-10.0); %Neutrophils 62.7 % (42.0-75.0); Hemoglobin 12.1 g/dL (12.0-16.0); Mean Corpuscular HGB CONC 33.7 g/dL (32.0-36.0); Mean Corpuscular Hemoglobin 29.1 pg (27.0-31.0); Mean Corpuscular Volume 86.4 fL (78.0-98.0); Mean Platelet Volume 7.4 fL (7.4-10.4); Platelet Count 269 thou/uL (130-400); RBC Distribution Width 14.7 % (11.5-14.5); Red Blood Cell (RBC) Count 4.16 mill/uL (4.20-5.40); White Blood Cell (WBC) Count 10.5 thou/uL (4.8-10.8)
[2017-12-30] MEDS ORDERED: cloNIDine 0.1 MG TAB ONE (22:56)
[2017-12-30 23:06] LABS: ALT (SGPT) 19 U/L (8-55); AST (SGOT) 24 U/L (5-34); Alkaline Phosphatase 67 U/L (40-150); Anion Gap 16 mmol/L (10-20); BUN (Urea Nitrogen) 11 mg/dL (9.8-20.1); Bilirubin, Total 0.4 mg/dL (0.2-1.2); CK (CPK) 22 U/L (29-168); Calc. Creatinine Clearance 0 mL/min (70-130); Calcium 8.4 mg/dL (7.8-10.44); Carbon Dioxide 28 mmol/L (23-31); Chloride 91 mmol/L (98-107); Estimated GFR-MDRD 76; Globulin 3.2 g/dL (2.4-3.5); Glucose 120 mg/dL (83-110); Lipase 73 U/L (8-78); Potassium 3.1 mmol/L (3.5-5.1); Protein, Total 7.2 g/dL (6.0-8.3); Sodium 132 mmol/L (136-145)
[2017-12-30 23:10] LABS: CKMB 0.8 ng/mL (0-6.6); Troponin I Less than 0.010 ng/mL (< 0.028)
[2017-12-31] MEDS ORDERED: Potassium Chloride 20 MEQ TAB ONE (00:23)
--- NOTE | 2018-01-03 11:57 | EKG ---
Test Reason : CP Blood Pressure : / mmHG Vent. Rate : 076 BPM Atrial Rate : 076 BPM P-R Int : 178 ms QRS Dur : 088 ms QT Int : 424 ms P-R-T Axes : 057 074 077 degrees QTc Int : 477 ms Normal sinus rhythm Normal ECG Confirmed by BEATRICE MCWILLIAMS ([id number]), fan mail editor NA HATFIELD ([id number]) on 01/03/2018 11:57:17 AM Referred By: Confirmed By:BEATRICE MCWILLIAMS
== END 2017-12-31 01:51 | disposition home or self-care (01) ==
LOC: ERS 21:51
DX: I11.0 Hypertensive heart disease with heart failure (principal); E87.6 Hypokalemia; I50.9 Heart failure, unspecified; E11.9 Type 2 diabetes mellitus without complications; I48.91 Unspecified atrial fibrillation
CPT/HCPCS: 36415; 71045; 80053; 82550; 82553; 83690; 84484; 85025; 93005

== ENCOUNTER 2018-05-04 10:42 | Outpatient (CLI) | payer MEDICARE ==
[2018-05-04] MEDS ORDERED: ISOVUE-370 76%-LOCM 1 ML ONE (11:51)
--- NOTE | 2018-05-04 13:44 | CT ---
CT OF ABDOMEN AND PELVIS PERFORMED WITH AND WITHOUT CONTRAST ENHANCEMENT: HISTORY: Gross hematuria that lasted approximately 1 week. The patient was on Xarelto. FINDINGS: There is a tiny left pleural effusion present. The liver, spleen, and pancreas regions appear unremarkable. The gallbladder is not identified. Right and left adrenal glands are normal in appearance. Right and left kidneys are normal in size. There are no signs of any renal or ureteral calculi. There is no significant periaortic or mesenteri c adenopathy. CT OF PELVIS PERFORMED WITH AND WITHOUT CONTRAST ENHANCEMENT: The appendix is normal. There is no evidence of adenopathy, mass, or free fluid. Postoperative tadeo ges of the right hip are incidentally seen. IMPRESSION: No signs of any renal mass. No evidence of renal calculi. POS: [facility]
== END 2018-05-04 10:43 | disposition home or self-care (01) ==
LOC: BICCT 10:42
PROVIDERS: ATTEND Urology
DX: R31.9 Hematuria, unspecified (principal)
CPT/HCPCS: 74178; 82565

== ENCOUNTER 2019-10-06 07:40 | Outpatient (CLI) | payer MEDICARE ==
--- NOTE | 2019-10-06 09:35 | MRI ---
MRI CERVICAL SPINE WITHOUT CONTRAST: HISTORY: Cervical radiculopathy. M54.12. COMPARISON: None. FINDINGS: Cerebellar tonsils terminate at the level of the foramen magnum. There is normal signal of the cervi britney cord. No marrow infiltrative process. Modic type I end plate changes at C4-5. Levels are as follows: C2-3: Normal disk. Mild uncinate process hypertrophy. No significant neural foraminal or spinal ca nal narrowing. C3-4: Mild disk space height loss and desiccation. There is moderate left and mild right uncinate p rocess hypertrophy. Minimal effacement of the ventral CSF space with a small disk bulge. The spinal canal measures a centimeter. No significant right and mild left neural foraminal narrowing. C4-5: Moderate degenerative disk space height loss with circumferential disk-osteophyte complex in l ateral recesses. Moderate bilateral neural foraminal narrowing. There is effacement of the ventral CSF space with the spinal canal measuring approximately 8 mm. Mild right and moderate hypertrophic f acet arthropathy. C5-6: Mild disk desiccation and small circumferential disk bulge. Mild right and moderate to severe left hypertrophic facet arthrosis. Moderate left and mild right neural foraminal narrowing. There is minimal effacement of the ventral CSF space and spinal canal measuring 9 mm. C6-7: Normal disk height with mild desiccation. Mild right and moderate left facet arthrosis with l eft facet joint effusion. Mild bilateral neural foraminal narrowing. No significant spinal canal na rrowing. C7-T1: Normal disk. No neural foraminal or spinal canal narrowing. IMPRESSION: Moderate spondylosis of the mid cervical spine as described. POS: HOME
--- NOTE | 2019-10-06 09:40 | RAD ---
CERVICAL SPINE 3 VIEWS: HISTORY: Cervical radiculopathy. FINDINGS: There are degenerative changes most prominent at C4-5 level. No fracture, subluxation, or bony destr uction is seen. IMPRESSION: Cervical spondylosis. POS: [facility]
== END 2019-10-06 07:41 | disposition home or self-care (01) ==
LOC: BICMRI 07:40
PROVIDERS: ATTEND Orthopaedic Surgery
DX: M47.22 Other spondylosis with radiculopathy, cervical region (principal)
CPT/HCPCS: 72040; 72141

== ENCOUNTER 2020-04-24 13:53 | Outpatient (CLI) | payer MEDICARE ==
[2020-04-25 09:25] LABS: SARS-CoV-2 MS2 Positive; SARS-CoV-2 N Gene Negative; SARS-CoV-2 S Gene Negative; SARS-CoV-2 by NAA Not Detected (NotDetected); SARS-CoV-2 orf1ab Negative
== END 2020-04-24 13:54 | disposition home or self-care (01) ==
LOC: LABBT 13:53
PROVIDERS: ATTEND Internal Medicine Cardiovascular Disease
DX: Z01.812 Encounter for preprocedural laboratory examination (principal); I48.91 Unspecified atrial fibrillation; Z20.828 Contact with and (suspected) exposure to other viral communicable diseases
CPT/HCPCS: 87635; U0003

== ENCOUNTER 2020-04-27 11:53 | Day surgery (SDC) | payer MEDICARE ==
[2020-04-26 09:43] VITALS: BMI 29.4
[~2020-04-27 11:53] MED LIST changes: -ISOVUE-370 76%-LOCM 1 ML ONE; +Lidocaine 1% PF 5 ML VIAL ONE
[2020-04-27] MEDS ORDERED: PROPOFOL 20 ML ONE (13:55)
--- NOTE | 2020-04-28 10:17 | OP ---
DATE OF PROCEDURE: 04/27/2020 PROCEDURE PERFORMED: Transesophageal echocardiogram. INDICATIONS FOR PROCEDURE: An 79-year-old woman with a mitral regurgitation. DESCRIPTION OF PROCEDURE: The patient was taken to the PACU. The patient was sedated by Anesthesiology. A transesophageal probe was placed in the distal esophagus and stomach. Echocardiographic images were obtained. The transesophageal probe was removed. FINDINGS: 1. There appears to be a mild decrease in left ventricular systolic function. 2. Global hypokinesis. 3. Normal mitral and aortic valves. 4. Ktykwwme-aw-svwxqs mitral regurgitation. 5. Severe tricuspid regurgitation. 6. Spontaneous contrast noted in the left atrial appendage without formed thrombus. 7. 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 IMPRESSION: Arxilgwl-an-[id number] mitral regurgitation with no formed thrombus in left atrium or left atrial appendage. Job ID: [id number] [facility]
--- NOTE | 2020-04-28 14:24 | CCLSPC ---
PROCEDURE: Cardioversion. The patient was brought to the post cath area in a fasting state. She was sedated. Transesophageal echo revealed no evidence of any thrombus. Given 200 joules of direct current energy and successfully cardioverted to sinus rhythm. CONCLUSION: Successful cardioversion. Job ID: [id number]
== END 2020-04-27 15:14 | disposition home or self-care (01) ==
LOC: CCL 11:53
PROVIDERS: ATTEND Internal Medicine Cardiovascular Disease
PROC: B245ZZ4 Ultrasonography of Left Heart, Transesophageal (ICD-10-PCS; principal; 2020-04-27)
PROC: 5A2204Z Restoration of Cardiac Rhythm, Single (ICD-10-PCS; 2020-04-27)
DX: I08.1 Rheumatic disorders of both mitral and tricuspid valves (principal); I48.91 Unspecified atrial fibrillation; Z79.01 Long term (current) use of anticoagulants; Z79.82 Long term (current) use of aspirin; Z79.84 Long term (current) use of oral hypoglycemic drugs; Z79.899 Other long term (current) drug therapy; Z88.0 Allergy status to penicillin; Z88.1 Allergy status to other antibiotic agents; Z88.7 Allergy status to serum and vaccine; Z88.8 Allergy status to other drugs, medicaments and biological substances; Z91.012 Allergy to eggs; Z91.018 Allergy to other foods
CPT/HCPCS: 92960; 93312; J2704

== ENCOUNTER 2022-02-19 13:04 | Outpatient (CLI) | payer MEDICARE | END 2022-02-19 13:05 | disposition home or self-care (01) | LOC: BICMAMMO 13:04 | PROVIDERS: ATTEND Family Medicine | DX: Z12.31 Encounter for screening mammogram for malignant neoplasm of breast (principal); Z13.820 Encounter for screening for osteoporosis; M81.0 Age-related osteoporosis without current pathological fracture; Z91.89 Other specified personal risk factors, not elsewhere classified; M85.88 Other specified disorders of bone density and structure, other site; Z78.0 Asymptomatic menopausal state | CPT/HCPCS: 77063; 77067; 77080 ==

== ENCOUNTER 2024-03-03 08:48 | Outpatient (CLI) | payer MEDICARE | END 2024-03-03 08:49 | disposition home or self-care (01) | LOC: BICMAMMO 08:48 | PROVIDERS: ATTEND Internal Medicine Endocrinology, Diabetes & Metabolism | DX: M81.8 Other osteoporosis without current pathological fracture (principal); M85.88 Other specified disorders of bone density and structure, other site | CPT/HCPCS: 77080 ==

== ENCOUNTER 2025-03-07 09:44 | Outpatient (CLI) | payer MEDICARE | END 2025-03-07 09:45 | disposition home or self-care (01) | LOC: BICMAMMO 09:44 | PROVIDERS: ATTEND Internal Medicine Endocrinology, Diabetes & Metabolism | DX: M81.8 Other osteoporosis without current pathological fracture (principal) | CPT/HCPCS: 77080 ==

== ENCOUNTER 2025-04-13 12:57 | Outpatient (CLI) | payer MEDICARE | END 2025-04-13 12:58 | disposition home or self-care (01) | LOC: ULT 12:57 | PROVIDERS: ATTEND Family Medicine | DX: R22.42 Localized swelling, mass and lump, left lower limb (principal) ==